=== PATIENT | female | born 1965 | race Caucasian/White ===

== ENCOUNTER → 2019-11-05 10:15 | Outpatient (BNVA) | payer MEDICARE, MEDICAID, SELFPAY | PROVIDERS: Family Provider Family Medicine; PCP Family Medicine; Visit Provider Family Medicine | DX: Z00.00 Encounter for general adult medical examination without abnormal findings (principal); Z78.9 Other specified health status; E03.9 Hypothyroidism, unspecified; I10 Essential (primary) hypertension; E78.2 Mixed hyperlipidemia; G62.9 Polyneuropathy, unspecified; G89.29 Other chronic pain; K21.9 Gastro-esophageal reflux disease without esophagitis; M54.5 Low back pain; E55.9 Vitamin D deficiency, unspecified; R53.83 Other fatigue | CPT/HCPCS: 80053; 80061; 82652; 84439; 84443; 84481 ==

== ENCOUNTER → 2019-12-26 10:40 | Outpatient (BNVA) | payer MEDICARE, MEDICAID, SELFPAY | PROVIDERS: Family Provider Family Medicine; PCP Family Medicine; Visit Provider Family Medicine | DX: E03.9 Hypothyroidism, unspecified (principal); R11.0 Nausea; N39.46 Mixed incontinence; R15.9 Full incontinence of feces; K21.9 Gastro-esophageal reflux disease without esophagitis; R15.1 Fecal smearing; N18.2 Chronic kidney disease, stage 2 (mild); E87.1 Hypo-osmolality and hyponatremia; I12.9 Hypertensive chronic kidney disease with stage 1 through stage 4 chronic kidney disease, or unspecified chronic kidney disease | CPT/HCPCS: 80048; 84443 ==

== ENCOUNTER → 2020-03-09 10:14 | Outpatient (BNVA) | payer MEDICARE, MEDICAID, SELFPAY | PROVIDERS: Family Provider Family Medicine; PCP Family Medicine; Visit Provider Family Medicine | DX: E03.9 Hypothyroidism, unspecified (principal); E11.8 Type 2 diabetes mellitus with unspecified complications; I10 Essential (primary) hypertension; J45.909 Unspecified asthma, uncomplicated; N18.2 Chronic kidney disease, stage 2 (mild); E87.1 Hypo-osmolality and hyponatremia | CPT/HCPCS: 80053; 83036; 84443 ==

== ENCOUNTER → 2020-05-25 17:12 | Outpatient (BNVA) | payer MEDICARE, MEDICAID, SELFPAY | PROVIDERS: Family Provider Family Medicine; PCP Family Medicine; Visit Provider Family Medicine | DX: E03.9 Hypothyroidism, unspecified (principal); I10 Essential (primary) hypertension; J45.909 Unspecified asthma, uncomplicated; N18.2 Chronic kidney disease, stage 2 (mild); G47.33 Obstructive sleep apnea (adult) (pediatric); J45.20 Mild intermittent asthma, uncomplicated; E11.22 Type 2 diabetes mellitus with diabetic chronic kidney disease; E11.40 Type 2 diabetes mellitus with diabetic neuropathy, unspecified | CPT/HCPCS: 80048; 83036; 84443 ==

== ENCOUNTER → 2020-08-04 10:13 | Outpatient (BNVA) | payer MEDICARE, MEDICAID, SELFPAY | PROVIDERS: Family Provider Family Medicine; PCP Family Medicine; Visit Provider Family Medicine | DX: E03.9 Hypothyroidism, unspecified (principal); M54.5 Low back pain; G89.29 Other chronic pain; G62.9 Polyneuropathy, unspecified; Z74.09 Other reduced mobility; Z78.9 Other specified health status; M77.8 Other enthesopathies, not elsewhere classified | CPT/HCPCS: 84439; 84443; 84481 ==

== ENCOUNTER → 2020-09-20 16:27 | Outpatient (BNVA) | payer MEDICAID, SELFPAY | PROVIDERS: Family Provider Family Medicine; PCP Family Medicine; Visit Provider Emergency Medicine | DX: N18.2 Chronic kidney disease, stage 2 (mild) (principal); R60.9 Edema, unspecified | CPT/HCPCS: 80048; 83880 ==

== ENCOUNTER 2020-11-25 07:17 | Outpatient (CLI) | payer MEDICARE, MEDICAID, SELFPAY ==
--- NOTE | 2020-11-25 07:20 | USCV_ITS ---
Jeanette Tatyana Age: 55 Gender: F : 1965 Exam Date: 11/25/2020 07:38 Ordering Phys: Rocio Bynum MD Technologist: Caryn Spence Exam Location: [facility] Indication: EDEMA BP: 120 / 80 HR: 90 Rhythm: Sinus Technical Quality: Technically difficult study MEASUREMENTS (Male / Female) Normal Values 2D ECHO LV Diastolic Diameter PLAX 4.5 cm 4.2 - 5.9 / 3.9 - 5.3 cm LV Systolic Diameter PLAX 3.4 cm IVS Diastolic Thickness 1.3 cm 0.6 - 1.0 / 0.6 - 0.9 cm IVS Systolic Thickness 1.7 cm LVPW Diastolic Thickness 1.0 cm 0.6 - 1.0 / 0.6 - 0.9 cm LVPW Systolic Thickness 1.8 cm LVOT Diameter 2.0 cm LV Ejection Fraction 2D Teich 48.9 % LV Ejection Fraction MOD 2C 28.7 % LV Ejection Fraction 2C AL 29.0 % LA Diameter 3.4 cm LA Width 3.6 cm LA Height 4.0 cm RA Width 4.2 cm RA Height 4.2 cm Aorta at Sinotubular Diameter 2.3 cm M-MODE LV Diastolic Diameter MM 4.3 cm 4.2 - 5.9 / 3.9 - 5.3 cm LV Systolic Diameter MM 3.3 cm LV Ejection Fraction MM Teich 48.8 % IVS Diastolic Thickness MM 1.5 cm 0.6 - 1.0 / 0.6 - 0.9 cm IVS Systolic Thickness MM 1.9 cm LVPW Diastolic Thickness MM 1.5 cm 0.6 - 1.0 / 0.6 - 0.9 cm LVPW Systolic Thickness MM 1.8 cm Aortic Annulus Diameter 3.1 cm LA Ao Ratio MM 1.2 MV E Point Septal Separation 1.3 cm DOPPLER AV Peak Velocity 136.0 cm/s LVOT Peak Velocity 97.0 cm/s AV Area Cont Eq vti 2.5 cm squared AV Area Cont Eq pk 2.2 cm squared MV Area PHT 5.0 cm squared Mitral E to A Ratio 1.1 MV E' Velocity 55.5 cm/s Mitral E to MV E' Ratio 11.5 Mitral E to LV E' Lateral Ratio 11.0 Mitral E to LV E' Septal Ratio 12.0 TR Peak Velocity 150.0 cm/s TR Peak Gradient 9.0 mmHg TV Peak E Velocity 56.0 cm/s Right Atrial Pressure 3.0 mmHg Pulmonary Artery Systolic Pressu 12.0 mmHg PV Peak Velocity 118.0 cm/s RV Acceleration Time 0.1 s RV Ejection Time 0.3 s RV AcT/ET 0.5 FINDINGS Left Ventricle Technically difficult study. Normal left ventricular size. LV systolic function is grossly normal. Regional wall motion abnormalities can not be assessed because of poor visualization. Right Ventricle The right ventricle is normal in size and function. Right Atrium The right atrium is normal in size. Left Atrium The left atrium is normal in size. Mitral Valve Not well visualized. No significant stenosis. There is trace mitral regurgitation. Aortic Valve Aortic valve is not well visualized. No signifcant stenosis. There is no aortic regurgitation. Tricuspid Valve Not well visualized. No significant stenosis or regurgitation. Insufficient TR jet to calculate RVSP Pulmonic Valve Not visualized Pericardium Normal pericardium without effusion. Aorta Normal ascending aorta dimension. CONCLUSIONS Technically difficult study because of poor ultrasonic windows. LV systolic function is grossly normal. Regional wall motion abnormalities cannot be assessed because of poor visualization. Trace mitral regurgitation. Valves are not well visualized but no significant abnormalities. No comparison studies are available. Chris Ibanez MD (Electronically Signed) Final Date: 29 November 2020 19:16 S
== END 2020-11-25 07:18 | disposition home or self-care (01) ==
PROVIDERS: PCP Family Medicine; Visit Provider Family Medicine
DX: R60.0 Localized edema (principal); I34.0 Nonrheumatic mitral (valve) insufficiency
CPT/HCPCS: 93306

== ENCOUNTER → 2021-02-15 10:02 | Outpatient (BNVA) | payer MEDICARE, MEDICAID, SELFPAY | PROVIDERS: PCP Family Medicine; Visit Provider Family Medicine | DX: E03.9 Hypothyroidism, unspecified (principal); N18.2 Chronic kidney disease, stage 2 (mild); E78.2 Mixed hyperlipidemia; J44.9 Chronic obstructive pulmonary disease, unspecified; Z23 Encounter for immunization; E78.5 Hyperlipidemia, unspecified; J45.909 Unspecified asthma, uncomplicated; E55.9 Vitamin D deficiency, unspecified; R60.0 Localized edema; G89.29 Other chronic pain; R11.0 Nausea; K21.9 Gastro-esophageal reflux disease without esophagitis; N39.46 Mixed incontinence; R15.1 Fecal smearing; G62.9 Polyneuropathy, unspecified; J45.20 Mild intermittent asthma, uncomplicated; E11.22 Type 2 diabetes mellitus with diabetic chronic kidney disease; I12.9 Hypertensive chronic kidney disease with stage 1 through stage 4 chronic kidney disease, or unspecified chronic kidney disease | CPT/HCPCS: 80053; 80061; 83036; 84439; 84443; 84481; 85025 ==

== ENCOUNTER → 2021-06-07 09:24 | Outpatient (BNVA) | payer MEDICARE, MEDICAID, SELFPAY | PROVIDERS: PCP Family Medicine; Visit Provider Family Medicine | DX: E55.9 Vitamin D deficiency, unspecified (principal); R53.83 Other fatigue; E03.9 Hypothyroidism, unspecified; N18.2 Chronic kidney disease, stage 2 (mild) | CPT/HCPCS: 80048; 82652; 84439; 84443; 84481 ==

== ENCOUNTER → 2021-07-06 10:35 | Outpatient (BNVA) | payer MEDICARE, MEDICAID, SELFPAY | PROVIDERS: PCP Family Medicine; Visit Provider Family Medicine | DX: E03.9 Hypothyroidism, unspecified (principal); E11.8 Type 2 diabetes mellitus with unspecified complications; E11.9 Type 2 diabetes mellitus without complications; N18.2 Chronic kidney disease, stage 2 (mild) | CPT/HCPCS: 80048; 83036; 84443 ==

== ENCOUNTER 2021-07-18 11:44 | Observation (INO) | payer MEDICARE, MEDICAID, SELFPAY ==
[2021-07-18] VITALS (9 sets, daily range): BP systolic 108–138; BP diastolic 62–96; PULSE 78–111; RESP 16–20; TEMP 36.7–37.2; O2SAT 90–98; BMI 58.3
--- NOTE | 2021-07-18 12:04 | XRR_ITS ---
PROCEDURE INFORMATION: Exam: XR Chest Exam date and time: 07/18/2021 12:04 PM Age: 56 years old Clinical indication: Other: CVA TECHNIQUE: Imaging protocol: XR of the chest. Views: 1 view. COMPARISON: No relevant prior studies available. FINDINGS: Lungs: Unremarkable. No consolidation. Pleural spaces: Unremarkable. No pleural effusion. No pneumothorax. Heart/Mediastinum: Unremarkable. No cardiomegaly. Bones/joints: Unremarkable. XR/XR chest 1V portable [id number] IMPRESSION: No acute findings.
--- NOTE | 2021-07-18 12:04 | CTR_ITS ---
PROCEDURE INFORMATION: Exam: CT Head Without Contrast Exam date and time: 07/18/2021 12:04 PM Age: 56 years old Clinical indication: Speech disturbance; Slurred speech; Additional info: CVA TECHNIQUE: Imaging protocol: Computed tomography of the head without contrast. Radiation optimization: All CT scans at this facility use at least one of these dose optimization techniques: automated exposure control; mA and/or kV adjustment per patient size (includes targeted exams where dose is matched to clinical indication); or iterative reconstruction. COMPARISON: No relevant prior studies available. RADIATION DOSE METRICS: Total DLP (mGy-cm): 1064.22 FINDINGS: Brain: There is loss of manuel-white differentiation and intermediate density in the anterior left parietal lobe consistent with subacute infarct. Mild local sulcal effacement however no midline shift. No evidence for acute intracranial hemorrhage. Cerebral ventricles: No ventriculomegaly. Paranasal sinuses: Visualized sinuses are unremarkable. No fluid levels. Mastoid air cells: Visualized mastoid air cells are well aerated. Bones/joints: Unremarkable. No acute fracture. Soft tissues: Unremarkable. CT/CT head wo con* [id number] IMPRESSION: Subacute infarct involving the anterior aspect of the left parietal lobe as described above.
--- NOTE | 2021-07-18 12:05 | ECG_ITS ---
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 Measurements Intervals Center Line Rate: 80 P: 29 MA: 181 QRS: -15 QRSD: 74 T: 29 QT: 357 QTc: 413 Interpretive Statements SINUS RHYTHM LOW QRS VOLTAGE IN PRECORDIAL LEADS [QRS DEFLECTION < 1.0 mV IN CHEST LEADS] POSSIBLE ANTERIOR MYOCARDIAL INFARCTION , PROBABLY OLD [30 ms Q WAVE IN V3/V4, OR R < 0.2 mV IN V4] No previous ECG available for comparison Electronically Signed On 07-19-2021 16:14:27 PARISH NURSE by Martha Thomas M.D. [id number]
--- NOTE | 2021-07-18 12:29 | W.ED.NEUROSD ---
HPI - Neuro Symptoms/Deficit General: Chief Complaint: Neuro Symptoms/Deficit Stated Complaint: slurred speech, stroke like symptoms, sent for ct Time Seen by Provider: 07/18/21 11:59 Source: patient Mode of arrival: ambulatory Limitations: no limitations History of Present Illness: 56-year-old female states that over the last 3 days she has been having some slight right-sided weakness along with some slurred speech. She states that this kind of waxed and waned and has been mild in nature she was able to ambulate to her room without any problems no history of stroke denies any headache denies any worst improving factors. Associated symptoms: Deny chest pain, nausea or vomiting Review of Systems Const: Denies: fever(s), chills, body aches or change in appetite Eyes: Denies: blurry vision or eye discomfort ENMT: Denies: throat pain or dental pain Card: Denies: chest pain Resp: Denies: dyspnea GI: Denies: abdominal pain, nausea, vomiting or diarrhea : Denies: dysuria Musc: Denies: neck pain or back pain Skin/Breast: Denies: rash Neuro: Reports: Slurred speech present Psych: Denies: depression Daniel/Lymph: Denies: easy bruising All/Imm: Denies: urticaria PFSH ED PFSH: Medical History Allergic rhinitis Asthma Chronic bilateral low back pain Chronic idiopathic pain syndrome Chronic post-traumatic stress disorder 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 Essential hypertension GERD (gastroesophageal reflux disease) Hyperlipidemia Hypothyroidism Insomnia Neuropathy CIERRA (obstructive sleep apnea) Psychiatric care Vitamin D deficiency Surgical History H/O section H/O: hysterectomy History of carpal tunnel surgery History of knee replacement Family History Other CAD (coronary artery disease) Diabetes Social History Smoking and tobacco status: never smoked Alcohol intake: former Female Reproductive History: Spontaneous abortions: No NIH stroke score NIHSS: Level Of Consciousness - 1a: 0 Level Of Consciousness Questions - 1b: Both Correct Level Of Consciousness Commands - 1c: Both Correct Best Gaze - 2: Normal Visual López - 3: No Visual Loss Facial Palsy - 4: Normal Motor Arm Right - 5: No Drift Motor Arm Left - 5: No Drift Motor Leg Right - 6: No Drift Motor Leg Left - 6: No Drift Limb Ataxia - 7: Absent Sensory - 8: Normal Best Language - 9: No Aphasia Dysarthia - 10: Mild/Moderate Dysarthia Extinction And Inattention - 11: 0 Score: Total Score: 1 Physical Exam Const: COMMON NORMALS: no acute distress, patient oriented x3, healthy appearing and alert ORIENTATION/CONSCIOUSNESS: Yes oriented to person, Yes oriented to place and Yes oriented to time HENMT: COMMON NORMALS: normocephalic and atraumatic HEAD & SCALP: normocephalic and atraumatic Eye: COMMON NORMALS: Equal, round and reactive pupils present and EOMs intact bilaterally PUPIL: Yes Equal, round and reactive pupils present Neck/C-Spine: COMMON NORMALS: full ROM and supple Chest: COMMONS NORMALS: normal inspection of the chest and normal palpation of entire chest wall Resp: COMMON NORMALS: normal respiratory effort, No retractions, No use of accessory muscles and clear to auscultation bilaterally AUSCULTATION: clear to auscultation bilaterally Cardio: COMMON NORMALS: regular rate, regular rhythm and No murmurs present (Cardio) RATE: regular rate RHYTHM: regular rhythm GI: COMMON NORMALS: Normal to inspection, nondistended, normoactive bowel sounds present, Soft to palpation, non-tender and no masses PALPATION: Yes Soft to palpation Extremity: COMMON NORMALS: normal to inspection and full ROM Neuro: COMMON NORMALS: patient oriented x3 and moves all extremities SENSORIUM/ORIENTATION: Yes alert, Yes oriented to person, Yes oriented to place and Yes oriented to time CRANIAL NERVES: Yes CN normal except as noted SPEECH: Other neuro speech findings (slurred speech) GAIT: Yes Normal gait present Psych: COMMON NORMALS: mental status grossly normal, Normal thought process present and cooperative THOUGHT PROCESS: Normal thought process present Skin: COMMON NORMALS: no rashes or lesions noted and no wounds GENERAL SKIN EXAM: no rashes or lesions noted Course Vital Signs: Vital signs: Vital Signs Temperature 98.1 F 07/18/21 11:56 Pulse Rate 111 H 07/18/21 12:49 Respiratory Rate 16 07/18/21 12:49 Blood Pressure 126/76 07/18/21 12:49 Pulse Oximetry 93 07/18/21 12:49 MDM - Neuro Symptoms/Deficit Medical Decision Making Patient presents here with slurred speech along with history of some right-sided weakness. She appears to had a stroke on CT she is not a TPA candidate as her symptoms started 3 days ago. Lab Data : 07/18/21 12:07 07/18/21 12:07 Radiology Impressions Chest X-Ray 07/18/21 12:04 IMPRESSION: No acute findings. Head CT 07/18/21 12:04 IMPRESSION: Subacute infarct involving the anterior aspect of the left parietal lobe as described above. ADDENDUM: 07/18/21 1308 CRITICAL RESULT: The study was personally discussed on the telephone with PARI Niño on 07/18/2021 1:03 PM COMMERCIAL LINES ASSISTANT. The results were understood and acknowledged. Laboratory Results Sodium Cancelled 07/18/21 12:07 Potassium Cancelled 07/18/21 12:07 Chloride Cancelled 07/18/21 12:07 Carbon Dioxide Cancelled 07/18/21 12:07 Anion Gap Cancelled 07/18/21 12:07 BUN Cancelled 07/18/21 12:07 Creatinine Cancelled 07/18/21 12:07 GFR Calculation Cancelled 07/18/21 12:07 Glucose Cancelled 07/18/21 12:07 Calculated Osmolality Cancelled 07/18/21 12:07 Calcium Cancelled 07/18/21 12:07 Total Bilirubin Cancelled 07/18/21 12:07 AST Cancelled 07/18/21 12:07 ALT Cancelled 07/18/21 12:07 Alkaline Phosphatase Cancelled 07/18/21 12:07 Total Protein Cancelled 07/18/21 12:07 Albumin Cancelled 07/18/21 12:07 Globulin Cancelled 07/18/21 12:07 TSH Cancelled 07/18/21 12:07 Urine Color Yellow (Yellow) 07/18/21 11:51 Urine Appearance Cloudy (CLEAR) 07/18/21 11:51 Urine pH 5 (5-7) 07/18/21 11:51 Ur Specific [place] 1.015 (1.005-1.030) 07/18/21 11:51 Urine Protein 3+ (Negative) H 07/18/21 11:51 Urine Glucose (UA) Norm (Normal) 07/18/21 11:51 Urine Ketones Negative (Negative) 07/18/21 11:51 Urine Blood Neg (Negative) 07/18/21 11:51 Urine Nitrate Positive (Negative) H 07/18/21 11:51 Urine Bilirubin Neg (Negative) 07/18/21 11:51 Urine Urobilinogen Norm mg/dL (Negative) 07/18/21 11:51 Ur Leukocyte Esterase Negative (Negative) 07/18/21 11:51 Urine RBC None /hpf (0-2) 07/18/21 11:51 Urine WBC 15-25 /hpf (0-5) H 07/18/21 11:51 Ur Squamous Epith Cells 25-40 /hpf (0-5) H 07/18/21 11:51 Ur Transition Epith Cell 0-4 /hpf 07/18/21 11:51 Amorphous Sediment Not Reportable 07/18/21 11:51 Urine Bacteria 4+ /hpf (NONE) H 07/18/21 11:51 EKG Data EKG 1: I personally reviewed and interpreted this EKG as follows: EKG interpretation date: 07/18/21 EKG interpretation time: 12:36 Interpretation: nsr hr [address] or t wave abnormalities qrs 74 qtc 393 Discharge Plan Discharge Patient Disposition: Admitted As Inpatient Clinical Impression: Acute CVA (cerebrovascular accident), Acute cystitis Condition: Stable Coding Level of Care Code ED Cardiac Catheterization Technician for Chg Fwd Exam Comprehensive
[2021-07-18 12:33] LABS: Basophils # 0.1 10^3/uL (0.0-0.1); Basophils % 0.8 %; Eosinophils # 0.3 10^3/uL (0.0-0.8); Eosinophils % 1.8 %; Hematocrit 37.3 % (37.0-47.0); Lymphocytes # 1.8 10^3/uL (0.8-4.8); Lymphocytes % 9.9 %; Mean Corpuscular HGB Conc 32.2 g/dL (30.0-36.0); Mean Corpuscular Hemoglobin 30.4 pg (28.0-34.0); Mean Corpuscular Volume 94.4 fl (81-99); Mean Platelet Volume 9.1 fL (7.4-10.4); Monocytes # 0.8 10^3/uL (0.2-0.9); Monocytes % 4.4 %; Neutrophils # 13.27 10^3/uL (1.8-7.7); Nucleated Red Blood Cells % 0 %; Platelet Count 426 10^3/cmm (130-400); Red Blood Count 3.95 10^6/uL (4.1-5.3); Red Cell Distribution Width 14.9 % (12.1-15.1); White Blood Count 17.9 10^3/uL (4.0-10.0)
[2021-07-18 12:59] LABS: Bilirubin Urine Neg (Negative); Blood Urine Neg (Negative); Glucose Urine UA Norm (Normal); Ketones Urine Negative (Negative); Leukocyte Esterase Urine Negative (Negative); Nitrate Urine Positive (Negative); Protein Urine 3+ (Negative); Specific Gravity, Urine 1.015 (1.005-1.030); Urine Appearance Cloudy (CLEAR); Urine Color Yellow (Yellow); Urobilinogen Urine Norm (Negative); pH Urine 5 (5-7)
[2021-07-18 13:00] LABS: Add Urine Microscopic? YES
[2021-07-18 13:02] LABS: WBC Urine 15-25 /hpf (0-5)
[2021-07-18 13:03] LABS: Add Urine Culture? No; Bacteria Urine 4+ /hpf; Squamous Epithelial Cell Urine 25-40 /hpf (0-5); Transitional Epi Cells Urine 0-4 /hpf
[2021-07-18 13:13] LABS: Slide Review Slide Review Perform
[2021-07-18 13:15] LABS: Neutrophils % 83.1 %
[2021-07-18] MEDS: cefTRIAXone 1,000 MG in sodium chloride 0.9% (plus) 50 ML 100 MG IV (13:18)
[2021-07-18] MEDS: aspirin 81 mg Chew Tablet PO (13:24)
[2021-07-18 14:16] LABS: Alanine Aminotransferase 16 U/L (0-33); Albumin Level 3.1 g/dL (3.5-5.2); Alkaline Phosphatase 84 IU/L (35-105); Chloride 96 mmol/L (98-107); Potassium 4.9 mmol/L (3.5-5.1); Sodium 134 mmol/L (136-145)
[2021-07-18 15:21] LABS: Anion Gap 20.9 (5-19); Blood Urea Nitrogen 41 mg/dL (6-20); Calcium 9.2 mg/dL (8.5-10.5); Carbon Dioxide 22 mmol/L (22-29); Globulin 3.4 g/dL (1.3-4.6); Glomerular Filtration Rate 19.2 mL/min (90-130); Glucose 102 mg/dL (65-115); Osmolality Calculated 288 mOsm/kg (285-295); Thyroid Stimulating Hormone 6.95 uIU/mL (0.27-4.20); Total Bilirubin 0.2 mg/dL (0.15-1.2); Total Protein 6.5 g/dL (6.6-8.7)
[2021-07-18 15:22] LABS: Aspartate Amino Transferase 22 U/L (0-32)
--- NOTE | 2021-07-18 16:16 | P.HP_ITS ---
Providers/Chief Complaint Admitting Physician: Sarkis Winchester Primary Care Provider: Rocio Bynum MD Chief Complaint: slurred speech, stroke like symptoms, sent for ct History of Present Illness Pleasant 56-year-old lady with history of HTN, HLD, diabetes, obesity, CIERRA, presents with right upper extremity weakness, numbness, clumsiness, as well as word finding difficulty since 07/15. Noting some improvement in the numbness and weakness of right upper extremity. Denies pain. Denies anything that makes his symptoms worse or better. She denies prior history of CVA. CT of the head with noted subacute infarct involving anterior aspect of left parietal lobe. She took aspirin today. She is outside the window for intervention. In ER received Rocephin for also possible UTI, with nitrate positive urine, 15-25 WBC, 25-40 squamous epithelial cells. 4+ bacteria. Review of Systems Const: Denies: fever(s), chills, body aches or malaise Eyes: Denies: change in vision or eye redness ENMT: Denies: throat pain, oral sores or ear or mastoid pain Card: Denies: chest pain, edema, pre-syncope or dyspnea on exertion Resp: Denies: dyspnea, productive cough, change in phlegm color or hemoptysis GI: Denies: abdominal pain, nausea, vomiting, diarrhea, constipation, hematochezia or melena : Denies: flank pain, urinary frequency or hematuria Musc: Denies: back pain, joint swelling or joint redness Skin/Breast: Denies: rash, sores or new lesions Neuro: Reports: numbness in extremities, weakness in extremities, lack of coordination and difficulty communicating thoughts; Denies: headache(s), dizziness, confusion or seizure-like activity Endo: Denies: polyuria or polydipsia Daniel/Lymph: Denies: easy bleeding or purpura All/Imm: Denies: urticaria, throat swelling or tongue swelling Medications/Allergies Home Medications Medication Instructions Recorded Confirmed Last Taken Type nystatin 100,000 unit/gram topical See Rx Instructions .ROUTE 01/22/21 07/18/21 Unknown Rx ointment .COMPLEX #30 g cholecalciferol (vitamin D3) 1,250 See Rx Instructions .ROUTE 02/15/21 07/18/21 Unknown Rx mcg (50,000 unit) tablet .COMPLEX #13 tab (Dialyvite Vitamin D3 Max) fluticasone propionate 50 1 spray INTRANASAL BID 90 Days 02/15/21 07/18/21 Unknown Rx mcg/actuation nasal #54.6 ml spray,suspension nystatin 100,000 unit/gram topical See Rx Instructions .ROUTE 06/10/21 07/18/21 Unknown Rx powder (Nyamyc) .COMPLEX #60 g albuterol sulfate 90 mcg/actuation 2 puff INHALATION QID PRN 90 Days 07/06/21 07/18/21 Unknown Rx aerosol inhaler (Ventolin HFA) #54 gm cyclobenzaprine 10 mg tablet See Rx Instructions .ROUTE 07/06/21 07/18/21 Unknown Rx .COMPLEX #180 tab furosemide 20 mg tablet (Lasix) 20 mg PO QAM 90 Days #90 tab 07/06/21 07/18/21 07/18/21 Rx insulin glargine 100 unit/mL 40 unit (0.4 mL) SUBCUT BID 90 07/06/21 07/18/21 07/18/21 Rx subcutaneous solution Days #72 ml levothyroxine 112 mcg tablet 112 mcg PO DAILY 90 Days #90 tab 07/06/21 07/18/21 07/18/21 Rx levothyroxine 50 mcg tablet 50 mcg PO DAILY 90 Days #90 tab 07/06/21 07/18/21 07/18/21 Rx lisinopril 20 mg tablet 20 mg PO DAILY 90 Days #90 tab 07/06/21 07/18/21 07/18/21 Rx metoprolol succinate 100 mg 100 mg PO DAILY 90 Days #90 tab 07/06/21 07/18/21 07/18/21 Rx tablet,extended release 24 hr ondansetron HCl 4 mg tablet 4 mg PO DAILY 90 Days #90 tab 07/06/21 07/18/21 Unknown Rx (Zofran) pregabalin 150 mg capsule (Lyrica) 150 mg PO TID 30 Days #90 cap 07/06/21 07/18/21 07/18/21 Rx duloxetine 20 mg capsule,delayed 20 mg PO DAILY #30 cap 07/08/21 07/18/21 07/18/21 Rx release (Cymbalta) clonazepam 0.5 mg tablet 0.5 mg PO QDAY PRN #30 tab 07/09/21 07/18/21 Unknown Rx amitriptyline 50 mg tablet 100 mg PO BEDTIME 07/18/21 07/18/21 07/17/21 History atorvastatin 10 mg tablet 10 mg PO DAILY 07/18/21 07/18/21 07/17/21 History brexpiprazole 4 mg tablet (Rexulti) 4 mg PO DAILY 07/18/21 07/18/21 07/18/21 Hi story duloxetine 60 mg capsule,delayed 60 mg PO DAILY 07/18/21 07/18/21 07/18/21 History release (Cymbalta) hydrochlorothiazide 25 mg tablet 25 mg PO DAILY 07/18/21 07/18/21 07/18/21 History meloxicam 15 mg tablet 15 mg PO DAILY 07/18/21 07/18/21 07/18/21 History metformin 500 mg tablet 500 mg PO DAILY 07/18/21 07/18/21 07/18/21 History montelukast 10 mg tablet 10 mg PO DAILY 07/18/21 07/18/21 07/18/21 History Allergies Allergy/AdvReac Type Severity Reaction Status Date / Time sulfamethoxazole Allergy hives Verified 07/18/21 09:54 [From Bactrim] trimethoprim [From Bactrim] Allergy hives Verified 07/18/21 09:54 PFSH Acute PFSH: Medical History Allergic rhinitis Asthma Chronic bilateral low back pain Chronic idiopathic pain syndrome Chronic post-traumatic stress disorder 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 Essential hypertension GERD (gastroesophageal reflux disease) Hyperlipidemia Hypothyroidism Insomnia Neuropathy CIERRA (obstructive sleep apnea) Psychiatric care Vitamin D deficiency Surgical History H/O section H/O: hysterectomy History of carpal tunnel surgery History of knee replacement Family History Other CAD (coronary artery disease) Diabetes Social History (Updated 07/18/21 @ 16:19 by Sarkis Winchester MD) Smoking and tobacco status: never smoked Alcohol intake: former Substance/Drug Use: never Lives independently: Yes Household members: significant other Current occupational status: retired and disabled Female Reproductive History: Spontaneous abortions: No Vitals/I&O/Wt Last Vital Signs Temp 98.1 F 07/18/21 11:56 Pulse 81 07/18/21 15:15 Resp 16 07/18/21 13:17 BP 133/91 07/18/21 15:15 Pulse Ox 98 07/18/21 15:15 07/18/21 07/18/21 07/18/21 06:59 14:59 22:59 Intake Total 50 / 50 Balance 50 / 50 Weight last 48 hrs Weight 144.696 kg Physical Exam Const: COMMON NORMALS: no acute distress and patient oriented x3 NUTRITIONAL APPEARANCE: obese morbidly obese HENMT: COMMON NORMALS: oropharynx normal Neck/C-Spine: COMMON NORMALS: no JVD Resp: COMMON NORMALS: normal respiratory effort and clear to auscultation bilaterally AUSCULTATION: clear to auscultation bilaterally Cardio: COMMON NORMALS: no JVD, regular rhythm, S1 normal heart sound present, S2 normal heart sound present and No murmurs present (Cardio) RHYTHM: regular rhythm HEART SOUNDS: S1 normal heart sound present and S2 normal heart sound present GI: COMMON NORMALS: Normal to inspection, nondistended, normoactive bowel sounds present, Soft to palpation and non-tender PALPATION: Yes Soft to palpation Extremity: COMMON NORMALS: no joint enlargement and no pedal edema Neuro: COMMON NORMALS: patient oriented x3 and moves all extremities SENSORIUM/ORIENTATION: Yes alert MENINGEAL SIGNS: Yes no meningeal signs COORDINATION/BALANCE: [id number] test normal (slower on R) SPEECH: expressive aphasia SENSORY EXAM: Yes Abnormal double simultaneous stimulation for sensation Double similtaneous stimulation abnormal: right-sided extinction MOTOR EXAM: 5/5 motor strength present throughout and Pronator motor function present pronator drift of right upper extremity OTHER: Awake, alert, responsive. No trouble tracking. Visual perry full to confrontation. Skin: COMMON NORMALS: no rashes or lesions noted GENERAL SKIN EXAM: no rashes or lesions noted Data : 07/18/21 12:07 07/18/21 13:15 A&P Assessment and plan (1) Acute CVA (cerebrovascular accident): Subacute stroke noted on CT involving anterior aspect of left parietal lobe. Denies prior CVA. Outside window for intervention. Discussed with her to seek medical attention immediately in case of future symptoms. Continue aspirin, escalate statin dose. Check A1c with history of diabetes. Monitor on telemetry. Assess TTE. Carotid duplex. Permissive hypertension. PT, OT, ST assessment. Discontinue meloxicam due to increasing risk of stroke. Status: Acute (2) Acute cystitis: Possible cystitis versus contaminated urine sample. Continue ceftriaxone. Requesting urine culture. Status: Acute Plan DM2: Continue insulin Lantus, add sliding scale. Consistent carbohydrate diet. Check A1c. HTN: Monitor blood pressures, permissive hypertension for now. HLD: Continue statin Hypothyroidism GERD Asthma CIERRA Other chronic medical conditions noted Attestations Medical Necessity Statement*: Admission of over two midnights is anticipated for assessment management of first CVA. 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
[2021-07-18 17:05] LABS: Glucose Point of Care 87 mg/dL (70-110)
[2021-07-18] MEDS: insulin glargine 100 units/1 mL 20 UNIT SUBCUT (17:27)
[2021-07-18] MEDS: heparin 5,000 unit/mL INJ 1 mL 5000 UNIT SUBCUT (17:27)
[2021-07-18] MEDS: fluticasone nasal spray 16gm Btl 1 SPRAY INTRANASAL (17:27)
[2021-07-18 17:37] LABS: Basophils # 0.1 10^3/uL (0.0-0.1); Basophils % 0.7 %; Eosinophils # 0.2 10^3/uL (0.0-0.8); Eosinophils % 1.7 %; Hematocrit 35.1 % (37.0-47.0); Hemoglobin 11.5 g/dL (11.5-15.3); Lymphocytes # 1.7 10^3/uL (0.8-4.8); Lymphocytes % 11.9 %; Mean Corpuscular HGB Conc 32.8 g/dL (30.0-36.0); Mean Corpuscular Hemoglobin 30.5 pg (28.0-34.0); Mean Corpuscular Volume 93.1 fl (81-99); Mean Platelet Volume 7.9 fL (7.4-10.4); Monocytes # 0.7 10^3/uL (0.2-0.9); Monocytes % 4.9 %; Neutrophils # 10.07 10^3/uL (1.8-7.7); Neutrophils % 72.7 %; Nucleated Red Blood Cells % 0 %; Platelet Count 422 10^3/cmm (130-400); Red Blood Count 3.77 10^6/uL (4.1-5.3); Red Cell Distribution Width 14.5 % (12.1-15.1); White Blood Count 13.9 10^3/uL (4.0-10.0)
[2021-07-18 17:53] LABS: Alanine Aminotransferase 14 U/L (0-33); Alkaline Phosphatase 82 IU/L (35-105); Anion Gap 15.3 (5-19); Aspartate Amino Transferase 18 U/L (0-32); Blood Urea Nitrogen 40 mg/dL (6-20); Calcium 9.9 mg/dL (8.5-10.5); Carbon Dioxide 24 mmol/L (22-29); Chloride 97 mmol/L (98-107); Globulin 3.5 g/dL (1.3-4.6); Glomerular Filtration Rate 18.4 mL/min (90-130); Glucose 92 mg/dL (65-115); Osmolality Calculated 283 mOsm/kg (285-295); Potassium 4.3 mmol/L (3.5-5.1); Sodium 132 mmol/L (136-145); Total Bilirubin 0.2 mg/dL (0.15-1.2); Total Protein 6.5 g/dL (6.6-8.7)
[2021-07-18 18:20] LABS: Slide Review Slide Review Perform
[2021-07-18 21:02] LABS: Glucose Point of Care 90 mg/dL (70-110)
[2021-07-18] MEDS: pregabalin 150 mg Capsule PO (21:13)
[2021-07-18] MEDS: atorvastatin 40 mg Tablet PO (21:13)
[2021-07-18] MEDS: amitriptyline 25 mg Tablet 100 MG PO (21:14)
[2021-07-18 23:34] LABS: Free T4 Free Thyroxine 1.24 ng/dL (0.82-1.77)
[2021-07-19] VITALS (7 sets, daily range): BP systolic 87–136; BP diastolic 51–84; PULSE 69–96; RESP 13–21; TEMP 36.6–37.1; O2SAT 91–96
[2021-07-19] MEDS: heparin 5,000 unit/mL INJ 1 mL 5000 UNIT SUBCUT ×2 (01:11→09:11)
[2021-07-19 05:33] LABS: Basophils # 0.1 10^3/uL (0.0-0.1); Basophils % 0.9 %; Eosinophils # 0.4 10^3/uL (0.0-0.8); Eosinophils % 2.7 %; Hematocrit 35.1 % (37.0-47.0); Hemoglobin 11.3 g/dL (11.5-15.3); Lymphocytes % 14.4 %; Mean Corpuscular HGB Conc 32.2 g/dL (30.0-36.0); Mean Corpuscular Hemoglobin 29.9 pg (28.0-34.0); Mean Corpuscular Volume 92.9 fl (81-99); Monocytes # 0.8 10^3/uL (0.2-0.9); Monocytes % 5.8 %; Neutrophils % 67.6 %; Nucleated Red Blood Cells % 0 %; Platelet Count 431 10^3/cmm (130-400); Red Blood Count 3.78 10^6/uL (4.1-5.3); Red Cell Distribution Width 14.3 % (12.1-15.1); White Blood Count 13.8 10^3/uL (4.0-10.0)
[2021-07-19 05:54] LABS: Glucose Point of Care 91 mg/dL (70-110)
[2021-07-19 05:55] LABS: Chol HDL Ratio 5.03 mg/dL (0.0-4.40); Cholesterol 151 mg/dL (0-200); HDL Cholesterol 30 mg/dL (60-100); LDL Cholesterol Calculated 84 mg/dL (50-129); Triglycerides 183 mg/dL (0-150)
[2021-07-19 05:56] LABS: Estmated Average Glucose 126
[2021-07-19] MEDS: FUROsemide 20 mg Tablet PO (06:08)
[2021-07-19 06:43] LABS: Slide Review Slide Review Perform
[2021-07-19] MEDS: duloxetine 60 mg Capsule PO (09:11)
[2021-07-19] MEDS: montelukast sodium 10 mg Tablet PO (09:11)
[2021-07-19] MEDS: levothyroxine 50 mcg Tablet PO (09:12)
[2021-07-19] MEDS: pregabalin 150 mg Capsule PO (09:12)
[2021-07-19] MEDS: levothyroxine 112 mcg Tablet PO (09:12)
[2021-07-19] MEDS: insulin glargine 100 units/1 mL 20 UNIT SUBCUT (09:12)
[2021-07-19] MEDS: aspirin 81 mg EC Tablet 162 MG PO (09:12)
[2021-07-19] MEDS: ondansetron 4 MG Tablet PO (09:12)
[2021-07-19] MEDS: metoprolol succinate ER (24 HR) 50 mg Tablet PO (09:14)
--- NOTE | 2021-07-19 09:21 | P.DS_ITS ---
Discharge Providers Date of Admission: 07/18/21 13:06 Date of Discharge: July 19, 2021 Attending Provider at Admission: Sarkis Winchester Attending Provider at Discharge: Adonay Higuera MD Primary Care Provider: Rocio Bynum MD Diagnoses at Discharge Discharge Diagnosis (1) Acute CVA (cerebrovascular accident): Status: Acute (2) Acute cystitis: Status: Acute Reason for Visit Reason for Visit: slurred speech, stroke like symptoms, sent for ct Hospital Course Hospital Course 56-year-old lady presenting with right upper extremity weakness, numbness, clumsiness, as well as aphasia and appears to have sensory neglect on the right since 07/15, noted subacute parietal CVA on CT head. Outside window for intervention. On 07/19 she was able to eat without any signs of aspiration, able to walk to the bathroom on her own without any assistance, eager to return home. Carotid Doppler echo report is pending. I will discharge on dual antiplatelet therapy for at least 21 days, start taking high dose of atorvastatin, better blood pressure and glucose control. TSH 6-hour free T4 normal. Crackles 183. Hemoglobin A1c 6.0. Would give her outpatient PT referral Physical Exam Narrative: Mild right arm weakness EOMI, PERRLA Right-sided sensory neglect Good strength of left arm and lower extremities bilaterally Able to understand my verbal commands S1, S2 Abdomen distended with obesity Saturating well on room air Discharge Data Studies Completed and Pending Completed Studies During Hospitalization Category Date Time Status CT head wo con* [id number] Urgent Cat Scan 07/18/21 12:04 Completed XR chest 1V portable [id number] Urgent Exams 07/18/21 12:04 Completed Pending at discharge Category Date Time Status Complete Blood Count w/Auto AM LABS Lab 07/20/21 04:00 Ordered Complete Blood Count w/Auto AM LABS Lab 07/21/21 04:00 Ordered Urine Culture Routine Lab 07/18/21 11:51 Received CV carotid duplex BI* [id number] Routine Ultrasound 07/19/21 06:00 Ordered CV. echo complete* [id number] Routine Ultrasound 07/19/21 06:00 Ordered Radiology Impressions Chest X-Ray 07/18/21 12:04 IMPRESSION: No acute findings. Head CT 07/18/21 12:04 IMPRESSION: Subacute infarct involving the anterior aspect of the left parietal lobe as described above. ADDENDUM: 07/18/21 1305 CRITICAL RESULT: The study was personally discussed on the telephone with PARI Niño on 07/18/2021 1:03 PM [employer]. The results were understood and acknowledged. Laboratory Results WBC 13.8 10^3/uL (4.0-10.0) H 07/19/21 05:09 RBC 3.78 10^6/uL (4.1-5.3) L 07/19/21 05:09 Hgb 11.3 g/dL (11.5-15.3) L 07/19/21 05:09 Hct 35.1 % (37.0-47.0) L 07/19/21 05:09 MCV 92.9 fl (81-99) 07/19/21 05:09 MCH 29.9 pg (28.0-34.0) 07/19/21 05:09 MCHC 32.2 g/dL (30.0-36.0) 07/19/21 05:09 RDW 14.3 % (12.1-15.1) 07/19/21 05:09 Plt Count 431 10^3/cmm (130-400) H 07/19/21 05:09 MPV 8.0 fL (7.4-10.4) 07/19/21 05:09 Neut % (Auto) 67.6 % 07/19/21 05:09 Lymph % (Auto) 14.4 % 07/19/21 05:09 [place] % (Auto) 5.8 % 07/19/21 05:09 Eos % (Auto) 2.7 % 07/19/21 05:09 Baso % (Auto) 0.9 % 07/19/21 05:09 Neut # (Auto) 9.30 10^3/uL (1.8-7.7) H 07/19/21 05:09 Lymph # (Auto) 2.0 10^3/uL (0.8-4.8) 07/19/21 05:09 [place] # (Auto) 0.8 10^3/uL (0.2-0.9) 07/19/21 05:09 Eos # (Auto) 0.4 10^3/uL (0.0-0.8) 07/19/21 05:09 Baso # (Auto) 0.1 10^3/uL (0.0-0.1) 07/19/21 05:09 Nucleated RBC % (auto) 0 % 07/19/21 05:09 Nucleated RBCs # 0.0 /100WBC 07/19/21 05:09 Sodium 132 mmol/L (136-145) L 07/18/21 17:24 Potassium 4.3 mmol/L (3.5-5.1) 07/18/21 17:24 Chloride 97 mmol/L (98-107) L 07/18/21 17:24 Carbon Dioxide 24 mmol/L (22-29) 07/18/21 17:24 Anion Gap 15.3 (5-19) 07/18/21 17:24 BUN 40 mg/dL (6-20) H 07/18/21 17:24 Creatinine 2.7 mg/dL (0.5-0.9) H 07/18/21 17:24 GFR Calculation 18.4 mL/min (90-130) L 07/18/21 17:24 Glucose 92 mg/dL (65-115) 07/18/21 17:24 POC Glucose 91 mg/dL (70-110) 07/19/21 05:49 Estimat Average Glucose 126 07/19/21 05:09 Hemoglobin A1c 6.0 % (4.0-6.0) 07/19/21 05:09 Calculated Osmolality 283 mOsm/kg (285-295) L 07/18/21 17:24 Calcium 9.9 mg/dL (8.5-10.5) 07/18/21 17:24 Total Bilirubin 0.2 mg/dL (0.15-1.2) 07/18/21 17:24 AST 18 U/L (0-32) 07/18/21 17:24 ALT 14 U/L (0-33) 07/18/21 17:24 Alkaline Phosphatase 82 IU/L (35-105) 07/18/21 17:24 Total Protein 6.5 g/dL (6.6-8.7) L 07/18/21 17:24 Albumin 3.0 g/dL (3.5-5.2) L 07/18/21 17:24 Globulin 3.5 g/dL (1.3-4.6) 07/18/21 17:24 Triglycerides 183 mg/dL (0-150) H 07/19/21 05:09 Cholesterol 151 mg/dL (0-200) 07/19/21 05:09 LDL Cholesterol, Calc 84 mg/dL (50-129) 07/19/21 05:09 HDL Cholesterol 30 mg/dL (60-100) L 07/19/21 05:09 LDL/HDL Ratio 2.80 RATIO (0.00-3.22) 07/19/21 05:09 Cholesterol/HDL Ratio 5.03 mg/dL (0.0-4.40) H 07/19/21 05:09 TSH 6.95 uIU/mL (0.27-4.20) H 07/18/21 13:15 Free T4 1.24 ng/dL (0.82-1.77) 07/18/21 17:54 Urine Color Yellow (Yellow) 07/18/21 11:51 Urine Appearance Cloudy (CLEAR) 07/18/21 11:51 Urine pH 5 (5-7) 07/18/21 11:51 Ur Specific [place] 1.015 (1.005-1.030) 07/18/21 11:51 Urine Protein 3+ (Negative) H 07/18/21 11:51 Urine Glucose (UA) Norm (Normal) 07/18/21 11:51 Urine Ketones Negative (Negative) 07/18/21 11:51 Urine Blood Neg (Negative) 07/18/21 11:51 Urine Nitrate Positive (Negative) H 07/18/21 11:51 Urine Bilirubin Neg (Negative) 07/18/21 11:51 Urine Urobilinogen Norm mg/dL (Negative) 07/18/21 11:51 Ur Leukocyte Esterase Negative (Negative) 07/18/21 11:51 Urine RBC None /hpf (0-2) 07/18/21 11:51 Urine WBC 15-25 /hpf (0-5) H 07/18/21 11:51 Ur Squamous Epith Cells 25-40 /hpf (0-5) H 07/18/21 11:51 Ur Transition Epith Cell 0-4 /hpf 07/18/21 11:51 Amorphous Sediment Not Reportable 07/18/21 11:51 Urine Bacteria 4+ /hpf (NONE) H 07/18/21 11:51 Vitals Last Vital Signs Temp 97.8 F 07/19/21 07:33 Pulse 69 07/19/21 09:06 Resp 16 07/19/21 09:06 BP 122/84 07/19/21 07:33 Pulse Ox 94 07/19/21 09:06 Discharge Plan Discharge Patient Disposition: Home Condition: Stable Prescriptions: New Plavix 75 mg tablet 75 mg PO DAILY Qty: 20 0RF aspirin [Aspirin Low Dose] 81 mg tablet,delayed release (DR/EC) 81 mg PO DAILY Qty: 90 2RF Continued albuterol sulfate [Ventolin HFA] 90 mcg/actuation HFA aerosol inhaler 2 puff INHALATION QID PRN (Reason: shortness of breath or wheezing) 90 Days Qty: 54 5RF cyclobenzaprine 10 mg tablet See Rx Instructions .ROUTE .COMPLEX Qty: 180 1RF Dose Instruction: TAKE 1 TABLET BY MOUTH TWICE DAILY NEEDED FOR MUSCLE SPASM(S) Rx Instructions: TAKE 1 TABLET BY MOUTH TWICE DAILY NEEDED FOR MUSCLE SPASM(S) furosemide [Lasix] 20 mg tablet 20 mg PO QAM 90 Days Qty: 90 1RF insulin glargine 100 unit/mL solution 40 unit SUBCUT BID 90 Days Qty: 72 2RF Rx Instructions: to replace pens levothyroxine 112 mcg tablet 112 mcg PO DAILY 90 Days Qty: 90 0RF Rx Instructions: Take with 50 mcg to equal 162 mcg daily levothyroxine 50 mcg tablet 50 mcg PO DAILY 90 Days Qty: 90 0RF Rx Instructions: Take with 112 mcg to equal 162 mcg daily lisinopril 20 mg tablet 20 mg PO DAILY 90 Days Qty: 90 1RF metoprolol succinate 100 mg tablet extended release 24 hr 100 mg PO DAILY 90 Days Qty: 90 1RF ondansetron HCl [Zofran] 4 mg tablet 4 mg PO DAILY 90 Days Qty: 90 1RF Rx Instructions: in the morning pregabalin [Lyrica] 150 mg capsule 150 mg PO TID 30 Days Qty: 90 2RF Dialyvite Vitamin D3 Max 1,250 mcg (50,000 unit) tablet See Rx Instructions .ROUTE .COMPLEX Qty: 13 1RF Dose Instruction: TAKE 1 TABLET EVERY WEEK Rx Instructions: TAKE 1 TABLET EVERY WEEK fluticasone propionate 50 mcg/actuation spray,suspension 1 spray INTRANASAL BID 90 Days Qty: 54.6 3RF nystatin 100,000 unit/gram ointment See Rx Instructions .ROUTE .COMPLEX Qty: 30 10RF Dose Instruction: APPLY TO AFFECTED AREA TOPICALLY TWICE DAILY Rx Instructions: APPLY TO AFFECTED AREA TOPICALLY TWICE DAILY nystatin [Nyamyc] 100,000 unit/gram powder See Rx Instructions .ROUTE .COMPLEX Qty: 60 2RF Dose Instruction: APPLY TOPICALLY DAILY Rx Instructions: APPLY TOPICALLY DAILY duloxetine [Cymbalta] 20 mg capsule,delayed release(DR/EC) 20 mg PO DAILY Qty: 30 2RF Rx Instructions: in addition to the 60mg daily TO EQUAL 80 MG clonazepam 0.5 mg tablet 0.5 mg PO QDAY PRN (Reason: anxiety) Qty: 30 2RF metformin 500 mg tablet 500 mg PO DAILY 0RF amitriptyline 50 mg tablet 100 mg PO BEDTIME 0RF montelukast 10 mg tablet 10 mg PO DAILY 0RF hydrochlorothiazide 25 mg tablet 25 mg PO DAILY 0RF Cymbalta 60 mg capsule,delayed release(DR/EC) 60 mg PO DAILY 0RF Rx Instructions: TAKE WITH 20MG DAILY TO EQUAL 80MG DAILY Rexulti 4 mg tablet 4 mg PO DAILY 0RF Changed atorvastatin 10 mg tablet 20 mg PO DAILY Qty: 60 0RF Discontinued meloxicam 15 mg tablet 15 mg PO DAILY 0RF Discharge Orders: Discharge Order (Routine); Ordered 07/19/21 Ordered By: Adonay Higuera Other Ambulatory Orders: MCT/Event Monitor 14 Days (Routine) Timeframe: 14 Day Facility: [facility] - Location: Radiology Ordered By: Adonay Higuera Physical Therapy Eval and Treat Outpatient (Order) Timeframe: 2 Months Facility: [facility] - Location: Physical Therapy Ordered By: Adonay Higuera Referrals: Rocio Bynum MD [Primary Care Provider] - 07/27/21 9:00 am Discharge Diet: Regular Discharge Activity: Increase activity as tolerated Patient Instructions: Clopidogrel (By mouth) (Plavix), Urinary Tract Infection in Women (DC), Ischemic Stroke (DC), Opioid Safety Activity Restrictions/Additional Instructions: APPOINTMENT FOR [facility] ON MondayJULY 22 AT 10:45 Discharge Attestations Time Spent in Discharge Care*: less than 30 min Quality Metrics Clinical Quality Measures [ No reported AMI, CVA or VTE this stay] Coding Level of Care Code Acute Chg FW DC note Diagnoses Acute CVA (cerebrovascular accident) I63.9 Acute cystitis N30.00
[2021-07-19 11:37] LABS: Glucose Point of Care 108 mg/dL (70-110)
--- NOTE | 2021-07-19 12:02 | PC.CHAP ---
Pastoral Care Encounter/Spiritual Assessment Type of Contact [] Declined weekend receptionist visit [] Patient/Family/Request visit [] Outpatient visit [] Follow-up visit [] Physician referral [] Code/Alert [x Routine visit [] Staff referral [] Actively dying [] Patient sleeping [] Family support [] [] Out of room [] Palliative care [] [] Receiving care in room [] Pre-surgical visit [] Trauma [] Long length of stay [] ICU visit [] Other: Relational/Emotional Strength [x Patient feels connected with others/family/visitors/staff [] Distress [] Loneliness/isolation [] Abandonment Spirituality of Patient [x] Person of Grace [x] Attends Lutheran of their Grace [x] Believes in Prayer [] Reads Bible or Jainism materials [] There are Spiritual issues to be addressed Hospital Cleaner Interventions [x] Prayer [x Active listening [x] Non-anxious presence [x] Spiritual/emotional support [] Crisis/trauma care [] Spiritual counseling [] Bereavement support [] Provided bereavement packet [] Provided Bible/devotional materials [] Provided toy/stuffed animal, coloring book to patient or family member [] Provided Communion [] Anointing/[place] [] Salvation [x Completed spiritual assessment [] Other: Impact on Illness or Injury [] Angry [] Fearful [] Anxious [] Often cries [] Exhaustion [] Unable to work [] Unable to attend rastafari [] Unable to walk/stand [] Unable to read [] Unable to drive [] Unable to eat/drink [] Unable to sleep [] Unable to be with family [] Patient intubated [] Other: Summary Time spent with patient 10 min
--- NOTE | 2021-07-19 12:10 | PC.NURSE ---
Patient verbalized understanding of discharge instructions, home medications, and follow up appointments.
== END 2021-07-19 13:20 | disposition home or self-care (01) ==
LOC: ER 13:05 → MEDSURG 14:36
PROVIDERS: Admitting Provider Internal Medicine; Emergency Provider Emergency Medicine; PCP Family Medicine; Visit Provider Internal Medicine
DX: I63.9 Cerebral infarction, unspecified (principal); N30.00 Acute cystitis without hematuria; I10 Essential (primary) hypertension; E78.5 Hyperlipidemia, unspecified; E11.40 Type 2 diabetes mellitus with diabetic neuropathy, unspecified; Z79.4 Long term (current) use of insulin; E66.9 Obesity, unspecified; Z68.43 Body mass index [BMI] 50.0-59.9, adult; G47.33 Obstructive sleep apnea (adult) (pediatric); J45.909 Unspecified asthma, uncomplicated; K21.9 Gastro-esophageal reflux disease without esophagitis; E03.9 Hypothyroidism, unspecified
CPT/HCPCS: 36415; 36416; 70450; 71045; 80053; 80061; 81001; 82962; 83036; 84439; 84443; 85025; 87077; 87086; 87186; 92523; 92610; 93005; 93306; 93880; 96365; 96372; 99285; G0378; J0696; J1644; J1815; Q0162

== ENCOUNTER → 2021-07-22 10:34 | Outpatient (BNVA) | payer MEDICARE, MEDICAID, SELFPAY | PROVIDERS: PCP Family Medicine; Visit Provider Internal Medicine | DX: I63.9 Cerebral infarction, unspecified (principal); R00.1 Bradycardia, unspecified; R00.0 Tachycardia, unspecified | CPT/HCPCS: 93270 ==

== ENCOUNTER → 2021-08-16 09:34 | Outpatient (BNVA) | payer MEDICARE, MEDICAID, SELFPAY | PROVIDERS: PCP Family Medicine; Visit Provider Family Medicine | DX: E03.9 Hypothyroidism, unspecified (principal); I10 Essential (primary) hypertension | CPT/HCPCS: 80048; 84443; 85025 ==

== ENCOUNTER → 2021-09-08 00:01 | Outpatient (BNVA) | payer MEDICARE, MEDICAID, SELFPAY | PROVIDERS: PCP Family Medicine; Visit Provider Family Medicine | DX: Z00.00 Encounter for general adult medical examination without abnormal findings (principal) | CPT/HCPCS: 81000; 87077; 87086; 87184 ==

== ENCOUNTER → 2021-12-01 09:43 | Outpatient (BNVA) | payer MEDICARE, MEDICAID, SELFPAY | PROVIDERS: PCP Family Medicine; Visit Provider Family Medicine | DX: I10 Essential (primary) hypertension (principal); E11.8 Type 2 diabetes mellitus with unspecified complications; N18.2 Chronic kidney disease, stage 2 (mild); E03.9 Hypothyroidism, unspecified; I63.89 Other cerebral infarction; G47.33 Obstructive sleep apnea (adult) (pediatric) | CPT/HCPCS: 80048; 83036; 84443 ==

== ENCOUNTER 2022-01-05 06:00 | Outpatient (RCR) | payer MEDICARE, MEDICAID, SELFPAY | END 2022-01-12 23:59 | disposition home or self-care (01) | LOC: MST 06:00 | PROVIDERS: PCP Family Medicine; Visit Provider Family Medicine | DX: I69.30 Unspecified sequelae of cerebral infarction (principal) | CPT/HCPCS: 92507; 92523 ==

== ENCOUNTER 2022-01-13 06:00 | Outpatient (RCR) | payer MEDICARE, MEDICAID, SELFPAY | END 2022-02-11 23:59 | disposition home or self-care (01) | LOC: MST 06:00 | PROVIDERS: PCP Family Medicine; Visit Provider Family Medicine | DX: I69.920 Aphasia following unspecified cerebrovascular disease (principal) | CPT/HCPCS: 92507 ==

== ENCOUNTER 2022-02-12 06:00 | Outpatient (RCR) | payer MEDICARE, MEDICAID, SELFPAY | END 2022-03-14 23:59 | disposition home or self-care (01) | LOC: MST 06:00 | PROVIDERS: PCP Family Medicine; Visit Provider Family Medicine | DX: I69.920 Aphasia following unspecified cerebrovascular disease (principal) | CPT/HCPCS: 92507 ==

== ENCOUNTER → 2022-02-15 09:58 | Outpatient (BNVA) | payer MEDICARE, MEDICAID, SELFPAY | PROVIDERS: PCP Family Medicine; Visit Provider Family Medicine | DX: E11.8 Type 2 diabetes mellitus with unspecified complications (principal); N18.2 Chronic kidney disease, stage 2 (mild); E03.9 Hypothyroidism, unspecified | CPT/HCPCS: 80053; 83036; 84439; 84443; 84481; 85025 ==

== ENCOUNTER → 2022-04-19 10:47 | Outpatient (BNVA) | payer MEDICARE, MEDICAID, SELFPAY | PROVIDERS: PCP Family Medicine; Visit Provider Family Medicine | DX: E03.9 Hypothyroidism, unspecified (principal); E78.2 Mixed hyperlipidemia; H60.90 Unspecified otitis externa, unspecified ear; G62.9 Polyneuropathy, unspecified; J30.1 Allergic rhinitis due to pollen; I10 Essential (primary) hypertension; E11.8 Type 2 diabetes mellitus with unspecified complications; H60.8X2 Other otitis externa, left ear; G89.29 Other chronic pain | CPT/HCPCS: 84439; 84443; 84481 ==

== ENCOUNTER 2022-06-19 16:08 | Emergency (ER) | payer MEDICARE, MEDICAID, SELFPAY ==
[2022-06-19 16:09] VITALS: BMI 51.2
[2022-06-19 16:13] VITALS: BP 167/96; PULSE 114; RESP 19; TEMP 36.6; O2SAT 94
--- NOTE | 2022-06-19 16:27 | XRR_ITS ---
PROCEDURE INFORMATION: Exam: XR Abdomen Exam date and time: 06/19/2022 4:45 PM Age: 57 years old Clinical indication: Constipation; Prior surgery; Surgery type: , hysto TECHNIQUE: Imaging protocol: Radiologic exam of the abdomen. Views: Frontal supine view of the abdomen. 1 View. COMPARISON: CR XR chest 1V portable [id number] 07/18/2021 12:40 PM FINDINGS: Gastrointestinal tract: There is significantly increased fecal loading in both the proximal and distal colon. For example the right colon measures up to 11 cm and the left colon measures up to 8.7 cm. No evidence of small bowel or gastric distention. No visible pneumatosis Bones/joints: Mild right hip degenerative changes. XR/XR abdomen 1V* [id number] IMPRESSION: Bilateral significantly increased fecal loading
--- NOTE | 2022-06-19 16:34 | W.ED.ABDPA2 ---
HPI - Abdominal Pain General: Chief Complaint: Abdominal Pain Stated Complaint: CONSTIPATED Time Seen by Provider: 06/19/22 16:13 Source: patient Mode of arrival: EMS Limitations: no limitations History of Present Illness: This 57-year-old female with a past history of diabetes, CKD, depression and CVA presents to the ER with constipation and generalized weakness. Patient has not had a bowel movement in about 6 days. She has no prior history of fecal impaction. She denies fever, headache, chest pain or shortness of breath. Associated Symptoms: Reports constipation; Denies chills and dysuria Review of Systems Const: Reports: other (Weakness); Denies: chills, body aches or change in appetite Eyes: Denies: change in vision or eye discharge ENMT: Denies: throat pain, dental pain or nasal discharge Card: Denies: chest pain or lightheadedness GI: Reports: constipation : Denies: dysuria Musc: Denies: neck pain or back pain Neuro: Denies: headache(s) or weakness in extremities Psych: Denies: depression Daniel/Lymph: Denies: easy bruising All/Imm: Denies: urticaria, tongue swelling or facial swelling PFSH ED PFSH: Medical History Allergic rhinitis Asthma Chronic bilateral low back pain Chronic idiopathic pain syndrome Chronic post-traumatic stress disorder 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 Essential hypertension Generalized anxiety disorder GERD (gastroesophageal reflux disease) Hyperlipidemia Hypothyroidism Insomnia Neuropathy CIERRA (obstructive sleep apnea) Psychiatric care Vitamin D deficiency Surgical History H/O section H/O: hysterectomy History of carpal tunnel surgery History of knee replacement Family History Other CAD (coronary artery disease) Diabetes Social History Smoking and tobacco status: never smoked Alcohol intake: former Lives independently: Yes Household members: significant other Current occupational status: retired and disabled Female Reproductive History: Spontaneous abortions: No Physical Exam Const: COMMON NORMALS: no acute distress, patient oriented x3, no limitations and alert OTHER: Morbidly obese HENMT: COMMON NORMALS: normocephalic HEAD & SCALP: normocephalic Eye: COMMON NORMALS: EOMs intact bilaterally Neck/C-Spine: COMMON NORMALS: full ROM and supple Chest: COMMONS NORMALS: normal inspection of the chest Resp: COMMON NORMALS: normal respiratory effort, No retractions, No use of accessory muscles and clear to auscultation bilaterally AUSCULTATION: clear to auscultation bilaterally Cardio: COMMON NORMALS: regular rate, regular rhythm and No murmurs present (Cardio) RATE: regular rate RHYTHM: regular rhythm GI: OTHER: Abdomen is large, minimal nonspecific discomfort on exam. No rigidity. Normal bowel sounds. : COMMON NORMALS: Yes no CVA tenderness BLADDER/KIDNEY EXAM: Yes no CVA tenderness Back/Pelvis: COMMON NORMALS: no CVA tenderness and no thoracic nor lumbar tenderness Extremity: GENERAL: Yes normal exam except as noted Neuro: COMMON NORMALS: patient oriented x3 and no focal motor deficits SENSORIUM/ORIENTATION: Yes alert Psych: COMMON NORMALS: mental status grossly normal and cooperative Course Vital Signs: Vital signs: Vital Signs Temperature 97.9 F 06/19/22 16:13 Pulse Rate 120 H 06/19/22 20:43 Respiratory Rate 22 H 06/19/22 20:43 Blood Pressure 144/103 06/19/22 20:43 Pulse Oximetry 96 06/19/22 20:43 Oxygen Delivery Me thod 06/19/22 18:34 MDM - Abdominal Pain Medical Decision Making Medical decision making: Patient primarily has constipation for the last 7 days. Rectal exam rules out fecal impaction. CT abdomen/pelvis confirms constipation and is suggestive of early diverticulitis. There is no perforation or abscess. She will be treated with antibiotics and laxatives. Lab Data 06/19/22 16:45 06/19/22 16:45 Labs/Radiology: Radiology Impressions Abdomen X-Ray 06/19/22 16:27 IMPRESSION: Bilateral significantly increased fecal loading Abdomen/Pelvis CT 06/19/22 18:18 IMPRESSION: 1. Proximal colonic fecal distention. There is a gradual transition and mild inflammation in the sigmoid colon. This could be stercoral colitis or a mild acute diverticulitis. No perforation or abscess. 2. Nonobstructing gallstone Laboratory Results WBC 18.2 10^3/uL (4.0-10.0) H 06/19/22 16:45 RBC 4.61 10^6/uL (4.1-5.3) 06/19/22 16:45 Hgb 14.0 g/dL (11.5-15.3) 06/19/22 16:45 Hct 41.4 % (37.0-47.0) 06/19/22 16:45 MCV 89.8 fl (81-99) 06/19/22 16:45 MCH 30.4 pg (28.0-34.0) 06/19/22 16:45 MCHC 33.8 g/dL (30.0-36.0) 06/19/22 16:45 RDW 13.7 % (12.1-15.1) 06/19/22 16:45 Plt Count 304 10^3/cmm (130-400) 06/19/22 16:45 MPV 9.3 fL (7.4-10.4) 06/19/22 16:45 Neut % (Auto) 87.0 % 06/19/22 16:45 Lymph % (Auto) 7.0 % 06/19/22 16:45 [place] % (Auto) 4.7 % 06/19/22 16:45 Eos % (Auto) 0.4 % 06/19/22 16:45 Baso % (Auto) 0.3 % 06/19/22 16:45 Neut # (Auto) 15.82 10^3/uL (1.8-7.7) H 06/19/22 16:45 Lymph # (Auto) 1.3 10^3/uL (0.8-4.8) 06/19/22 16:45 [place] # (Auto) 0.9 10^3/uL (0.2-0.9) 06/19/22 16:45 Eos # (Auto) 0.1 10^3/uL (0.0-0.8) 06/19/22 16:45 Baso # (Auto) 0.1 10^3/uL (0.0-0.1) 06/19/22 16:45 Nucleated RBC % (auto) 0 % 06/19/22 16:45 Nucleated RBCs # 0.0 /100WBC 06/19/22 16:45 Sodium 126 mmol/L (136-145) L 06/19/22 16:45 Potassium 3.1 mmol/L (3.5-5.1) L 06/19/22 16:45 Chloride 86 mmol/L (98-107) L 06/19/22 16:45 Carbon Dioxide 25 mmol/L (22-29) 06/19/22 16:45 Anion Gap 18.1 (5-19) 06/19/22 16:45 BUN 10 mg/dL (6-20) 06/19/22 16:45 Creatinine 1.1 mg/dL (0.5-0.9) H 06/19/22 16:45 GFR Calculation 51.6 mL/min (90-130) L 06/19/22 16:45 Glucose 159 mg/dL (65-115) H 06/19/22 16:45 Calculated Osmolality 264 mOsm/kg (285-295) L 06/19/22 16:45 Calcium 10.0 mg/dL (8.5-10.5) 06/19/22 16:45 Total Bilirubin 0.6 mg/dL (0.15-1.2) 06/19/22 16:45 AST 20 U/L (0-32) 06/19/22 16:45 ALT 19 U/L (0-33) 06/19/22 16:45 Alkaline Phosphatase 95 U/L (35-105) 06/19/22 16:45 Total Protein 6.9 g/dL (6.6-8.7) 06/19/22 16:45 Albumin 4.1 g/dL (3.5-5.2) 06/19/22 16:45 Globulin 2.8 g/dL (1.3-4.6) 06/19/22 16:45 Discharge Plan Discharge Patient Disposition: Home Clinical Impression: Diverticulitis large intestine, Constipation by delayed colonic transit Condition: Stable Prescriptions: New ciprofloxacin HCl 500 mg tablet 500 mg PO Q12H Qty: 14 0RF metronidazole 500 mg tablet 500 mg PO TID 7 Days Qty: 21 0RF Senokot 8.6 mg tablet 8.6 mg PO DAILY PRN (Reason: constipation) Qty: 10 0RF Golytely 236-22.74-6.74 -5.86 gram recon soln 240 ml PO Q10M Qty: 4000 0RF Rx Instructions: Until have the first bowel movement No Action metoprolol succinate 100 mg tablet extended release 24 hr 100 mg PO DAILY 90 Days Qty: 90 1RF Hold Instructions: Home Medication placed on hold at Doctor's office Dialyvite Vitamin D3 Max 1,250 mcg (50,000 unit) tablet See Rx Instructions .ROUTE .COMPLEX Qty: 13 1RF Dose Instruction: TAKE 1 TABLET EVERY WEEK Rx Instructions: TAKE 1 TABLET EVERY WEEK fluticasone propionate 50 mcg/actuation spray,suspension 1 spray INTRANASAL BID 90 Days Qty: 54.6 3RF hydrochlorothiazide 25 mg tablet 25 mg PO DAILY 90 Days Qty: 90 0RF Hold Instructions: Home Medication placed on hold at Doctor's office (DME) FreeStyle Lay 14 Day Sensor Kit See Rx Instructions .Route Qty: 2 11RF Rx Instructions: Test 3 times daily miscellaneous medical supply Misc See Rx Instructions miscellaneous .COMPLEX Qty: 1 0RF Rx Instructions: rolling walker with seat, wide seat as directed; insulin glargine 100 unit/mL solution 35 unit SUBCUT BID 90 Days Qty: 63 2RF Rx Instructions: to replace pens atorvastatin 20 mg tablet 20 mg PO DAILY 90 Days Qty: 90 3RF [id number] 3.5-10,000-1 mg/mL-unit/mL-% drops,suspension 4 drp otic (ear) Q8H 10 Days Qty: 10 0RF Rx Instructions: left ear pregabalin [Lyrica] 150 mg capsule 150 mg PO TID 30 Days Qty: 90 2RF cyclobenzaprine 10 mg tablet See Rx Instructions .ROUTE .COMPLEX Qty: 180 1RF Dose Instruction: TAKE 1 TABLET BY MOUTH TWICE DAILY NEEDED FOR MUSCLE SPASM(S) Rx Instructions: TAKE 1 TABLET BY MOUTH TWICE DAILY NEEDED FOR MUSCLE SPASM(S) alcohol swabs [Easy Touch Alcohol Prep Pads] Pads, Medicated See Rx Instructions .ROUTE .COMPLEX Qty: 100 5RF Dose Instruction: USE 1 PAD TOPICALLY THREE TIMES A DAY NEEDED TO CHECK BLOOD SUGAR Rx Instructions: USE 1 PAD TOPICALLY THREE TIMES A DAY NEEDED TO CHECK BLOOD SUGAR nystatin 100,000 unit/gram ointment See Rx Instructions .ROUTE .COMPLEX Qty: 30 10RF Dose Instruction: APPLY TOPICALLY TO AFFECTED AREAS TWICE DAILY Rx Instructions: APPLY TOPICALLY TO AFFECTED AREAS TWICE DAILY nystatin 100,000 unit/gram powder See Rx Instructions .ROUTE .COMPLEX Qty: 60 10RF Dose Instruction: APPLY TOPICALLY DAILY DIRECTED Rx Instructions: APPLY TOPICALLY DAILY DIRECTED furosemide [Lasix] 20 mg tablet 20 mg PO BID 90 Days Qty: 180 1RF Rx Instructions: 1 in AM, 1 at noon albuterol sulfate [Ventolin HFA] 90 mcg/actuation HFA aerosol inhaler 2 puff INHALATION QID PRN (Reason: shortness of breath or wheezing) 90 Days Qty: 54 5RF clonazepam 0.5 mg tablet 0.5 mg PO QDAY PRN (Reason: anxiety) Qty: 30 2RF amitriptyline 50 mg tablet 100 mg PO BEDTIME Qty: 60 2RF vortioxetine 10 mg tablet 10 mg PO DAILY Qty: 30 2RF (DME) lancets [Accu-Chek Fastclix Lancet Drum] Misc See Rx Instructions .ROUTE .COMPLEX Qty: 204 10RF Dose Instruction: USE WITH GLUCOSE METER THREE TIMES A DAY Rx Instructions: USE WITH GLUCOSE METER THREE TIMES A DAY (DME) insulin syringe-needle U-100 [Comfort EZ Insulin Syringe] 0.5 mL 31 gauge x 5/16 syringe See Rx Instructions .Route Qty: 100 11RF Rx Instructions: to use with insulin BID (DME) Blood Glucose Test Strip See Rx Instructions .Route Qty: 50 11RF Rx Instructions: use to test blood sugar three times daily ondansetron HCl 4 mg tablet 4 mg PO DAILY 90 Days Qty: 90 1RF Rx Instructions: in the morning levothyroxine 150 mcg tablet See Rx Instructions .ROUTE .COMPLEX Qty: 90 0RF Dose Instruction: TAKE 1 TABLET BY MOUTH DAILY Rx Instructions: TAKE 1 TABLET BY MOUTH DAILY metformin 500 mg tablet 500 mg PO DAILY 90 Days Qty: 90 0RF montelukast 10 mg tablet See Rx Instructions .ROUTE .COMPLEX Qty: 30 1RF Dose Instruction: TAKE 1 TABLET BY MOUTH ONCE DAILY Rx Instructions: TAKE 1 TABLET BY MOUTH ONCE DAILY duloxetine [Cymbalta] 60 mg capsule,delayed release(DR/EC) 60 mg PO DAILY Qty: 30 0RF [place] Low Dose Aspirin 81 mg tablet,delayed release (DR/EC) 81 mg PO DAILY Qty: 90 2RF Discharge Orders: Discharge ED (Routine); Ordered 06/19/22 Ordered By: Kofi Ruffin Referrals: Rocio Bynum MD [Primary Care Provider] - Discharge Activity: Resume usual activity Patient Instructions: Opioid Safety, Pain Management Activity Restrictions/Additional Instructions: Increase fiber in your diet including fruits and vegetables. Drink GoLytely until he have the first bowel movement. After that, stop drinking. Then use the prescribed Senokot to maintain regular bowel movements. Maintain adequate fluid intake Follow-up with your primary care physician. In 3 to 5 days for reevaluation. Return if you develop worsening abdominal pain, abdominal distention, fever or any new concerning symptoms Coding Level of Care Code ED Sandwich Artist for Chg Fwd Exam Comprehensive
[2022-06-19 17:07] LABS: Basophils # 0.1 10^3/uL (0.0-0.1); Basophils % 0.3 %; Eosinophils # 0.1 10^3/uL (0.0-0.8); Eosinophils % 0.4 %; Hematocrit 41.4 % (37.0-47.0); Lymphocytes # 1.3 10^3/uL (0.8-4.8); Mean Corpuscular HGB Conc 33.8 g/dL (30.0-36.0); Mean Corpuscular Hemoglobin 30.4 pg (28.0-34.0); Mean Corpuscular Volume 89.8 fl (81-99); Mean Platelet Volume 9.3 fL (7.4-10.4); Monocytes # 0.9 10^3/uL (0.2-0.9); Monocytes % 4.7 %; Neutrophils # 15.82 10^3/uL (1.8-7.7); Nucleated Red Blood Cells % 0 %; Platelet Count 304 10^3/cmm (130-400); Red Blood Count 4.61 10^6/uL (4.1-5.3); Red Cell Distribution Width 13.7 % (12.1-15.1); White Blood Count 18.2 10^3/uL (4.0-10.0)
[2022-06-19 17:18] LABS: Alanine Aminotransferase 19 U/L (0-33); Albumin Level 4.1 g/dL (3.5-5.2); Alkaline Phosphatase 95 U/L (35-105); Anion Gap 18.1 (5-19); Aspartate Amino Transferase 20 U/L (0-32); Blood Urea Nitrogen 10 mg/dL (6-20); Carbon Dioxide 25 mmol/L (22-29); Chloride 86 mmol/L (98-107); Globulin 2.8 g/dL (1.3-4.6); Glomerular Filtration Rate 51.6 mL/min (90-130); Glucose 159 mg/dL (65-115); Osmolality Calculated 264 mOsm/kg (285-295); Potassium 3.1 mmol/L (3.5-5.1); Sodium 126 mmol/L (136-145); Total Bilirubin 0.6 mg/dL (0.15-1.2); Total Protein 6.9 g/dL (6.6-8.7)
--- NOTE | 2022-06-19 18:18 | CTR_ITS ---
PROCEDURE INFORMATION: Exam: CT Abdomen And Pelvis With Contrast Exam date and time: 06/19/2022 6:31 PM Age: 57 years old Clinical indication: Condition or disease; Intestinal condition; Constipation; Prior surgery; Surgery date: 6+ months; Surgery type: C section, hyster; Additional info: Abdominal pain, constipation. TECHNIQUE: Imaging protocol: Computed tomography of the abdomen and pelvis with contrast. Radiation optimization: All CT scans at this facility use at least one of these dose optimization techniques: automated exposure control; mA and/or kV adjustment per patient size (includes targeted exams where dose is matched to clinical indication); or iterative reconstruction. Contrast material: OMNI 350; Contrast volume: 100 ml; Contrast route: INTRAVENOUS (IV); Other protocol: This patient has received [address] and 0 known cardiac nuclear medicine studies in the 12 months prior to the current study. COMPARISON: CR (ABDOMEN, ) 06/19/2022 4:45 PM RADIATION DOSE METRICS: Total DLP (mGy-cm): 1273.53 FINDINGS: Liver: Normal. No mass. Gallbladder and bile ducts: A 2.8 cm gallstone in the gallbladder is nonobstructing. Pancreas: The pancreas is somewhat fatty but otherwise normal. Spleen: Normal. No splenomegaly. Adrenal glands: Normal. No mass. Kidneys and ureters: Normal. No hydronephrosis. Stomach and bowel: The proximal 2/3 of the colon is distended with fecal material measuring up to 8 cm in diameter. There are mild inflammatory changes around the distal descending and proximal sigmoid colon and the bowel decreases in diameter in this region. There are a few diverticula in this region. No perforation or abscess. The very distal colon is completely decompressed. Small bowel is normal. There are small clips or pellets within the nondistended stomach. Appendix: No evidence of appendicitis. Intraperitoneal space: Unremarkable. No free air. No significant fluid collection. Vasculature: Unremarkable. No abdominal aortic aneurysm. Lymph nodes: Unremarkable. No enlarged lymph nodes. Urinary bladder: Unremarkable as visualized. Reproductive: Unremarkable as visualized. Bones/joints: Mild chronic degenerative changes in the lower lumbar spine. Soft tissues: Unremarkable. CT/CT abdomen pelvis w con* [id number] IMPRESSION: 1. Proximal colonic fecal distention. There is a gradual transition and mild inflammation in the sigmoid colon. This could be stercoral colitis or a mild acute diverticulitis. No perforation or abscess. 2. Nonobstructing gallstone
[2022-06-19 18:34] VITALS: BP 177/98; PULSE 112; RESP 18; O2SAT 95
[2022-06-19] MEDS: iohexol 350 mg/mL 500 mL Btl (per mL) IV (18:34)
[2022-06-19 20:35] VITALS: RESP 22
[2022-06-19] MEDS: metroNIDAZOLE 500 MG Tablet PO (20:35)
[2022-06-19] MEDS: morphine 4 mg/mL SDV 1 mL IVP (20:35)
[2022-06-19] MEDS: ciprofloxacin 500 mg Tablet PO (20:35)
[2022-06-19] MEDS: Fleet Enema 133 mL Enema PR (20:36)
[2022-06-19 20:43] VITALS: BP 144/103; PULSE 120; RESP 22; O2SAT 96
== END 2022-06-19 20:50 | disposition home or self-care (01) ==
PROVIDERS: Emergency Provider Family Medicine; PCP Family Medicine
DX: K57.32 Diverticulitis of large intestine without perforation or abscess without bleeding (principal); K59.01 Slow transit constipation; Z79.82 Long term (current) use of aspirin; Z79.4 Long term (current) use of insulin; Z79.84 Long term (current) use of oral hypoglycemic drugs; E11.9 Type 2 diabetes mellitus without complications; I10 Essential (primary) hypertension; E78.5 Hyperlipidemia, unspecified
CPT/HCPCS: 74018; 74177; 80053; 85025; 96374; 99285; J2270; Q9967

== ENCOUNTER → 2022-07-19 09:38 | Outpatient (BNVA) | payer MEDICARE, MEDICAID, SELFPAY | PROVIDERS: PCP Family Medicine; Visit Provider Family Medicine | DX: J45.909 Unspecified asthma, uncomplicated (principal); I10 Essential (primary) hypertension; R60.0 Localized edema; E11.8 Type 2 diabetes mellitus with unspecified complications; E03.9 Hypothyroidism, unspecified; R11.0 Nausea; J30.1 Allergic rhinitis due to pollen; G62.9 Polyneuropathy, unspecified; E11.9 Type 2 diabetes mellitus without complications; N18.2 Chronic kidney disease, stage 2 (mild) | CPT/HCPCS: 80048; 83036; 84443 ==

== ENCOUNTER → 2022-10-18 13:59 | Outpatient (BNVA) | payer MEDICARE, MEDICAID, SELFPAY | PROVIDERS: PCP Family Medicine; Visit Provider Family Medicine | DX: G62.9 Polyneuropathy, unspecified (principal); N18.2 Chronic kidney disease, stage 2 (mild); E03.9 Hypothyroidism, unspecified; E78.2 Mixed hyperlipidemia; E11.8 Type 2 diabetes mellitus with unspecified complications; N39.46 Mixed incontinence; R15.9 Full incontinence of feces; I10 Essential (primary) hypertension; G89.29 Other chronic pain; R15.1 Fecal smearing | CPT/HCPCS: 80048; 80061; 83036; 84439; 84443; 84481; 85025 ==

== ENCOUNTER → 2023-01-31 13:50 | Outpatient (BNVA) | payer MEDICARE, MEDICAID, SELFPAY | PROVIDERS: PCP Family Medicine; Visit Provider Family Medicine | DX: G62.9 Polyneuropathy, unspecified (principal); J30.1 Allergic rhinitis due to pollen; I10 Essential (primary) hypertension; E11.8 Type 2 diabetes mellitus with unspecified complications; R60.0 Localized edema; J45.909 Unspecified asthma, uncomplicated; K59.00 Constipation, unspecified; E11.9 Type 2 diabetes mellitus without complications; E03.9 Hypothyroidism, unspecified; G47.33 Obstructive sleep apnea (adult) (pediatric); G89.29 Other chronic pain; J45.20 Mild intermittent asthma, uncomplicated; N18.2 Chronic kidney disease, stage 2 (mild); F41.1 Generalized anxiety disorder; E87.6 Hypokalemia | CPT/HCPCS: 80048; 83036; 83735; 84439; 84443; 84481 ==

== ENCOUNTER → 2023-08-01 11:30 | Outpatient (BNVA) | payer MEDICARE, MEDICAID, SELFPAY | PROVIDERS: PCP Family Medicine; Referring Provider Family Medicine; Visit Provider Family Medicine | DX: J45.909 Unspecified asthma, uncomplicated (principal); E78.2 Mixed hyperlipidemia; I10 Essential (primary) hypertension; R60.0 Localized edema; E11.8 Type 2 diabetes mellitus with unspecified complications; E03.9 Hypothyroidism, unspecified; J30.1 Allergic rhinitis due to pollen; E11.9 Type 2 diabetes mellitus without complications; G62.9 Polyneuropathy, unspecified; Z68.43 Body mass index [BMI] 50.0-59.9, adult; G89.29 Other chronic pain; N18.2 Chronic kidney disease, stage 2 (mild); J45.20 Mild intermittent asthma, uncomplicated | CPT/HCPCS: 80053; 83036; 84439; 84443; 84481 ==

== ENCOUNTER → 2023-10-31 13:53 | Outpatient (BNVA) | payer MEDICARE, MEDICAID, SELFPAY | PROVIDERS: PCP Family Medicine; Visit Provider Family Medicine | DX: E11.8 Type 2 diabetes mellitus with unspecified complications (principal); I10 Essential (primary) hypertension; E03.9 Hypothyroidism, unspecified; E11.9 Type 2 diabetes mellitus without complications; I63.89 Other cerebral infarction; G62.9 Polyneuropathy, unspecified; Z74.09 Other reduced mobility; Z78.9 Other specified health status | CPT/HCPCS: 80048; 83036; 84439; 84443; 84481 ==

== ENCOUNTER 2024-01-15 15:36 | Emergency (ER) | payer MEDICARE, MEDICAID, SELFPAY ==
[2024-01-15 15:48] VITALS: BP 156/126; PULSE 128; RESP 24; TEMP 36.6; O2SAT 98
--- NOTE | 2024-01-15 16:04 | XRR_ITS ---
PROCEDURE INFORMATION: Exam: XR Chest Exam date and time: 01/15/2024 4:07 PM Age: 58 years old Clinical indication: Other: Tachy TECHNIQUE: Imaging protocol: Radiologic exam of the chest. Views: 1 view. COMPARISON: CR XR chest 1V portable [id number] 07/18/2021 12:40 PM FINDINGS: Lungs: The lungs are hypoexpanded. Mild bibasilar atelectasis versus scarring. Right perihilar prominence likely representing overlying vessels. Pleural spaces: Unremarkable. No pleural effusion. No pneumothorax. Heart/Mediastinum: Unremarkable. No cardiomegaly. Bones/joints: Unremarkable. XR/XR chest 1V portable [id number] IMPRESSION: Hypoexpanded lungs with patient rotation limits evaluation. Mild bibasilar atelectasis versus scarring.
--- NOTE | 2024-01-15 16:06 | W.ED.SKABFB ---
Documented by User: MATTHEW Palmer 01/15/24 16:34 HPI - Skin/Abscess/Foreign Bdy General: Chief complaint: Wound/Laceration Stated complaint: lower abd/buttock wounds Time Seen by Provider: 01/15/24 15:46 Source: patient Mode of arrival: EMS Limitations: no limitations History of Present Illness: Patient is a 58-year-old female with an extensive past medical history including generalized anxiety disorder, hypothyroidism, morbid obesity with a BMI of 51, obstructive sleep apnea, hyperlipidemia, HTN, GERD, type 2 diabetes, chronic idiopathic pain syndrome, previous CVA left with speech deficits here after she called an ambulance for pain related to chronic skin wounds/rashes involving her pannus and buttocks. Upon arrival she appears significantly anxious, sitting on the edge of her bed hyperventilating and wailing. She has trouble providing history due to some chronic dysarthria. She goes on tangents about the loss of a loved one 21 years ago but they still reside in her heart and again starts wailing. She states she wants her father to come to the ED to be with her. Various other statements unrelated to her visit. I finally was able to somewhat calm her down and direct her enough to tell me why she called an ambulance today-she lifts her pannus to show me her chronic candidal infection crying stating it hurts so bad . complaint: rash Severity: moderate Quality: burning Pain Consistency: constant Relieving factors: none Exacerbating factors: none Context: none Associated symptoms: Deny chills, fever(s) or vomiting Related Data Previous Rx's Medication Instructions Recorded cholecalciferol (vitamin D3) 1,250 See Rx Instructions .Route 02/15/21 mcg (50,000 unit) tablet .COMPLEX #13 tabs (Dialyvite Vitamin D3 Max) aspirin 81 mg tablet,delayed 81 mg PO DAILY #90 tabs 07/19/21 release (Awilda Low Dose Aspirin) nystatin 100,000 unit/gram topical See Rx Instructions .Route 12/10/21 powder .COMPLEX #60 grams miscellaneous medical supply See Rx Instructions miscellaneous 01/04/22 .COMPLEX #1 ea vevnznxc-rheylxqnk-aqpzzkwxa 3.5 4 drp otic (ear) Q8H 10 days #10 mL 04/19/22 mg-10,000 unit/mL-1 % ear drops,susp peg 3350-electrolytes 236 240 ml PO Q10M #4,000 mL 06/19/22 gram-22.74 gram-6.74 gram-5.86 gram solution (Golytely) insulin syringe-needle U-100 0.5 #100 ea 07/19/22 mL 31 gauge x 5/16 (Comfort EZ Insulin Syringe) ondansetron HCl 4 mg tablet 4 mg PO DAILY 90 days #90 tabs 07/19/22 miscellaneous medical supply See Rx Instructions miscellaneous 01/02/23 .COMPLEX #1 ea docusate sodium 100 mg capsule 100 mg PO BID 30 days #60 caps 01/31/23 fluticasone propionate 50 1 spray intranasal BID 90 days 05/02/23 mcg/actuation nasal #54.6 mL spray,suspension alcohol swabs (Easy Touch Alcohol See Rx Instructions .Route 06/22/23 Prep Pads) .COMPLEX #100 ea albuterol sulfate 90 mcg/actuation 2 puff inhalation QID PRN 08/01/23 aerosol inhaler (Ventolin HFA) shortness of breath or wheezing 90 days #54 grams atorvastatin 20 mg tablet 20 mg PO DAILY 90 days #90 tabs 08/01/23 cyclobenzaprine 10 mg tablet See Rx Instructions .Route 08/01/23 .COMPLEX #180 tabs flash glucose scanning reader #1 ea 08/01/23 (FreeStyle Lay 14 Day [place]) furosemide 20 mg tablet 20 mg PO BID 90 days #180 tabs 08/01/23 insulin degludec 100 unit/mL (3 35 unit (0.35 mL) SUBCUT BID 90 08/01/23 mL) subcutaneous pen days #63 mL metformin 500 mg tablet 500 mg PO DAILY 90 days #90 tabs 08/01/23 montelukast 10 mg tablet See Rx Instructions .Route 08/01/23 .COMPLEX #90 tabs flash glucose sensor (FreeStyle #2 ea 08/12/23 Lay 14 Day Sensor kit) nystatin 100,000 unit/gram topical See Rx Instructions .Route 08/21/23 ointment .COMPLEX #30 grams diaper,brief,adult,disposable #210 ea 09/06/23 (Depend Underwear For Women Large) blood sugar diagnostic (OneTouch #200 strips 09/13/23 Verio test strips) lancets 30 gauge (Pure Comfort #200 ea 10/16/23 Lancets) flash glucose sensor (FreeStyle #1 ea 10/19/23 Lay 14 Day Sensor kit) metoprolol succinate 100 mg 100 mg PO DAILY 90 days #90 tabs 10/31/23 tablet,extended release 24 hr miscellaneous medical supply See Rx Instructions miscellaneous 10/31/23 .COMPLEX #1 ea semaglutide 0.25 mg or 0.5 mg (2 0.25 mg (0.368 mL) SUBCUT .WEEKLY 10/31/23 mg/3 mL) subcutaneous pen injector #3 mL (Ozempic) levothyroxine 137 mcg tablet 137 mcg PO DAILY 90 days #90 tabs 11/06/23 pregabalin 150 mg capsule (Lyrica) 150 mg PO TID 30 days #90 caps 12/23/23 amitriptyline 50 mg tablet See Rx Instructions .Route 01/08/24 .COMPLEX #60 tabs cariprazine 1.5 mg capsule 1.5 mg PO DAILY #30 caps 01/08/24 (Vraylar) clonazepam 0.5 mg tablet 0.5 mg PO QDAY PRN anxiety #30 tabs 01/08/24 duloxetine 30 mg capsule,delayed See Rx Instructions .Route 01/08/24 release .COMPLEX #30 caps duloxetine 60 mg capsule,delayed See Rx Instructions .Route 01/08/24 release .COMPLEX #30 caps nystatin 100,000 unit/gram topical 1 applic topical BID #15 grams 01/15/24 cream Allergies Allergy/AdvReac Type Severity Reaction Status Date / Time sulfamethoxazole Allergy hives Verified 01/15/24 15:52 [From Bactrim] trimethoprim [From Bactrim] Allergy hives Verified 01/15/24 15:52 Review of Systems Const: Denies: fever(s), chills, body aches, fatigue or malaise Card: Denies: chest pain Resp: Reports: dyspnea (reports chronic SOB most likely from hypoventilation); Denies: productive cough, non-productive cough or chest congestion GI: Denies: vomiting or diarrhea : Denies: flank pain or dysuria Musc: Reports: other (reports chronic pain all over) Skin/Breast: Reports: rash and erythema Neuro: Denies: headache(s) or dizziness PFS ED PFSH: Medical History Generalized anxiety disorder Psychiatric care Diabetes mellitus type 2 with complications Chronic post-traumatic stress disorder Depressive disorder due to separate medical condition Hypothyroidism Asthma Insomnia Neuropathy Allergic rhinitis Chronic idiopathic pain syndrome Vitamin D deficiency Chronic bilateral low back pain CIERRA (obstructive sleep apnea) Hyperlipidemia GERD (gastroesophageal reflux disease) Essential hypertension Hydrochlorothiazide discontinued due to hypotension Surgical History History of carpal tunnel surgery History of knee replacement H/O: hysterectomy H/O section Family History Other CAD (coronary artery disease) Diabetes Social History Smoking and tobacco/nicotine status: never used tobacco/nicotine Alcohol intake: former Substance/Drug Use: never Lives independently: Yes Household members: significant other Current occupational status: retired and disabled Female Reproductive History: Spontaneous abortions: No Physical Exam Const: COMMON NORMALS: patient oriented x3 and alert GENERAL APPEARANCE: in distress, anxious and other (hyperventilating, wailing/crying) NUTRITIONAL APPEARANCE: obese morbidly obese (BMI of 51.2) ORIENTATION/CONSCIOUSNESS: Yes awake, Yes oriented to person, Yes oriented to place and Yes oriented to time HENMT: COMMON NORMALS: normocephalic and atraumatic HEAD & SCALP: normal to inspection, normocephalic and atraumatic Neck/C-Spine: COMMON NORMALS: no lymphadenopathy and no meningeal signs GENERAL: Yes normal visual inspection Chest: COMMONS NORMALS: normal inspection of the chest and normal palpation of entire chest wall Resp: COMMON NORMALS: normal respiratory effort and clear to auscultation bilaterally EFFORT & INSPECTION: Yes other (tachypneic/hyperventilating) AUSCULTATION: clear to auscultation bilaterally Cardio: COMMON NORMALS: regular rhythm RATE: tachycardic RHYTHM: regular rhythm GI: COMMON NORMALS: Soft to palpation PALPATION: Yes Soft to palpation and No Tenderness to palpation present (GI) OTHER: chronic candidal infection to abdominal pannus; powder has been applied from patient; I do not see any large areas of skin breakdown or ulcers Back/Pelvis: COMMON NORMALS: thoracic and lumbar spine normal to inspection OTHER: chronic candidal wound to gluteal clefts Extremity: GENERAL: Yes normal exam except as noted Neuro: COMMON NORMALS: patient oriented x3 SENSORIUM/ORIENTATION: Yes alert, Yes oriented to person, Yes oriented to place and Yes oriented to time MENINGEAL SIGNS: Yes no meningeal signs Skin: NARRATIVE SKIN EXAM: see above RASHES: rashes noted Course Vital Signs: Vital signs: Vital Signs Temperature 98 F 01/15/24 15:48 Pulse Rate 117 H 01/15/24 18:00 Respiratory Rate 24 H 01/15/24 18:00 Blood Pressure 144/95 01/15/24 18:00 Pulse Oximetry 96 01/15/24 18:00 Oxygen Delivery Me thod Room Air 01/15/24 18:00 MDM - Skin/Abscess/Foreign Bdy Lab Data 01/15/24 16:41 01/15/24 16:41 Radiology Impressions Chest X-Ray 01/15/24 16:04 IMPRESSION: Hypoexpanded lungs with patient rotation limits evaluation. Mild bibasilar atelectasis versus scarring. Laboratory Results WBC 13.08 10^3/uL (3.29-11.43) H 01/15/24 16:41 RBC 4.65 10^6/uL (3.85-5.65) 01/15/24 16:41 Hgb 13.60 g/dL (11.27-16.99) 01/15/24 16:41 Hct 39.7 % (36-47) 01/15/24 16:41 MCV 85.4 fl (85-98) 01/15/24 16:41 MCH 29.2 pg (27-33) 01/15/24 16:41 MCHC 34.3 g/dL (30-55) 01/15/24 16:41 RDW 13.9 % (12.1-15.1) 01/15/24 16:41 Plt Count 277 10^3/cmm (157-399) 01/15/24 16:41 MPV 9.3 fL (7.4-10.4) 01/15/24 16:41 Neut % (Auto) 73.3 % 01/15/24 16:41 Lymph % (Auto) 18.3 % 01/15/24 16:41 Burt % (Auto) 6.7 % 01/15/24 16:41 Eos % (Auto) 0.8 % 01/15/24 16:41 Baso % (Auto) 0.5 % 01/15/24 16:41 Neut # (Auto) 9.60 10^3/uL (1.8-7.7) H 01/15/24 16:41 Lymph # (Auto) 2.4 10^3/uL (0.8-4.8) 01/15/24 16:41 Burt # (Auto) 0.9 10^3/uL (0.2-0.9) 01/15/24 16:41 Eos # (Auto) 0.1 10^3/uL (0.0-0.8) 01/15/24 16:41 Baso # (Auto) 0.1 10^3/uL (0.0-0.1) 01/15/24 16:41 Nucleated RBC % (auto) 0 % 01/15/24 16:41 Nucleated RBCs # 0.0 /100WBC 01/15/24 16:41 Sodium 144 mmol/L (136-145) 01/15/24 16:41 Potassium 3.7 mmol/L (3.5-5.1) 01/15/24 16:41 Chloride 108 mmol/L (98-107) H 01/15/24 16:41 Carbon Dioxide 17 mmol/L (22-29) L 01/15/24 16:41 Anion Gap 22.7 (5-19) H 01/15/24 16:41 BUN 8 mg/dL (6-20) 01/15/24 16:41 Creatinine 0.9 mg/dL (0.5-0.9) 01/15/24 16:41 GFR Calculation 64.8 mL/min (90-130) L 01/15/24 16:41 Glucose 136 mg/dL (65-115) H 01/15/24 16:41 Calculated Osmolality 298 mOsm/kg (285-295) H 01/15/24 16:41 Lactic Acid 1.9 mmol/L (0.5-2.2) 01/15/24 16:41 Calcium 9.0 mg/dL (8.5-10.5) 01/15/24 16:41 Total Bilirubin 1.6 mg/dL (0.15-1.2) H 01/15/24 16:41 AST 22 U/L (0-32) 01/15/24 16:41 ALT 16 U/L (0-33) 01/15/24 16:41 Alkaline Phosphatase 93 U/L (35-105) 01/15/24 16:41 C-Reactive Protein 71.3 mg/L (0.0-4.9) H 01/15/24 16:41 Total Protein 6.6 g/dL (6.6-8.7) 01/15/24 16:41 Albumin 3.7 g/dL (3.5-5.2) 01/15/24 16:41 Globulin 2.9 g/dL (1.3-4.6) 01/15/24 16:41 Urine Color Yellow (Yellow) 01/15/24 18:05 Urine Appearance Slightly cloudy (CLEAR) 01/15/24 18:05 Urine pH Not Reportable 01/15/24 18:05 Ur Specific [place] Not Reportable 01/15/24 18:05 Urine Protein Not Reportable 01/15/24 18:05 Urine Glucose (UA) Not Reportable 01/15/24 18:05 Urine Ketones Not Reportable 01/15/24 18:05 Urine Blood Not Reportable 01/15/24 18:05 Urine Nitrate Not Reportable 01/15/24 18:05 Urine Bilirubin Not Reportable 01/15/24 18:05 Urine Urobilinogen Not Reportable 01/15/24 18:05 Ur Leukocyte Esterase Not Reportable 01/15/24 18:05 Urine RBC 0-4 /hpf (0-2) H 01/15/24 18:05 Urine WBC 0-4 /hpf (0-5) H 01/15/24 18:05 Ur Squamous Epith Cells None /hpf (0-5) 01/15/24 18:05 Amorphous Sediment Not Reportable 01/15/24 18:05 Urine Bacteria None /hpf (NONE) 01/15/24 18:05 Hyaline Casts 0-4 /lpf H 01/15/24 18:05 Urine Mucus 3+ /hpf 01/15/24 18:05 Discharge Plan Discharge Patient Disposition: Home Clinical Impression: Chronic erythematous candidiasis, Anxiety Condition: Stable Prescriptions: New nystatin 100,000 unit/gram cream 1 applic topical BID Qty: 15 0RF No Action Dialyvite Vitamin D3 Max 1,250 mcg (50,000 unit) tablet See Rx Instructions .ROUTE .COMPLEX Qty: 13 1RF Dose Instruction: TAKE 1 TABLET EVERY WEEK Rx Instructions: TAKE 1 TABLET EVERY WEEK (DME) insulin syringe-needle U-100 [Comfort EZ Insulin Syringe] 0.5 mL 31 gauge x 5/16 syringe See Rx Instructions .Route Qty: 100 11RF Rx Instructions: to use with insulin BID ondansetron HCl 4 mg tablet 4 mg PO DAILY 90 Days Qty: 90 1RF Rx Instructions: in the morning docusate sodium 100 mg capsule 100 mg PO BID 30 Days Qty: 60 2RF miscellaneous medical supply [facility] See Rx Instructions miscellaneous .COMPLEX Qty: 1 0RF Rx Instructions: CPAP machine and supplies as directed; albuterol sulfate [Ventolin HFA] 90 mcg/actuation HFA aerosol inhaler 2 puff INHALATION QID PRN (Reason: shortness of breath or wheezing) 90 Days Qty: 54 5RF atorvastatin 20 mg tablet 20 mg PO DAILY 90 Days Qty: 90 3RF cyclobenzaprine 10 mg tablet See Rx Instructions .ROUTE .COMPLEX Qty: 180 1RF Dose Instruction: TAKE 1 TABLET BY MOUTH TWICE DAILY NEEDED FOR MUSCLE SPASM(S) Rx Instructions: TAKE 1 TABLET BY MOUTH TWICE DAILY NEEDED FOR MUSCLE SPASM(S) furosemide 20 mg tablet 20 mg PO BID 90 Days Qty: 180 1RF insulin degludec 100 unit/mL (3 mL) insulin pen 35 unit SUBCUT BID 90 Days Qty: 63 3RF metformin 500 mg tablet 500 mg PO DAILY 90 Days Qty: 90 1RF montelukast 10 mg tablet See Rx Instructions .ROUTE .COMPLEX Qty: 90 1RF Dose Instruction: TAKE 1 TABLET BY MOUTH ONCE DAILY Rx Instructions: TAKE 1 TABLET BY MOUTH ONCE DAILY (DME) FreeStyle Lay 14 Day [place] [facility] [place] See Rx Instructions .ROUTE .MEDSUPPLY Qty: 1 0RF Rx Instructions: As directed amitriptyline 50 mg tablet See Rx Instructions .ROUTE .COMPLEX Qty: 60 5RF Dose Instruction: TAKE 2 TABLETS BY MOUTH DAILY AT BEDTIME Rx Instructions: TAKE 2 TABLETS BY MOUTH DAILY AT BEDTIME clonazepam 0.5 mg tablet 0.5 mg PO QDAY PRN (Reason: anxiety) Qty: 30 5RF duloxetine 30 mg capsule,delayed release(DR/EC) See Rx Instructions .ROUTE .COMPLEX Qty: 30 5RF Dose Instruction: TAKE 1 CAPSULE BY MOUTH DAILY Rx Instructions: TAKE 1 CAPSULE BY MOUTH DAILY duloxetine 60 mg capsule,delayed release(DR/EC) See Rx Instructions .ROUTE .COMPLEX Qty: 30 5RF Dose Instruction: TAKE 1 CAPSULE BY MOUTH DAILY Rx Instructions: TAKE 1 CAPSULE BY MOUTH DAILY Vraylar 1.5 mg capsule 1.5 mg PO DAILY Qty: 30 3RF miscellaneous medical supply [facility] [place] See Rx Instructions miscellaneous .COMPLEX Qty: 1 0RF Rx Instructions: rolling walker with seat, wide seat as directed; cvsqncqw-tveqlfcju-DR 3.5-10,000-1 mg/mL-unit/mL-% drops,suspension 4 drp otic (ear) Q8H 10 Days Qty: 10 0RF Rx Instructions: left ear fluticasone propionate 50 mcg/actuation spray,suspension 1 spray INTRANASAL BID 90 Days Qty: 54.6 3RF miscellaneous medical supply [facility] [place] See Rx Instructions miscellaneous .COMPLEX Qty: 1 0RF Rx Instructions: life alert device as directed; metoprolol succinate 100 mg tablet extended release 24 hr 100 mg PO DAILY 90 Days Qty: 90 1RF Hold Instructions: Home Medication placed on hold at Doctor's office Ozempic 0.25 mg or 0.5 mg (2 mg/3 mL) pen injector 0.25 mg SUBCUT .WEEKLY Qty: 3 2RF nystatin 100,000 unit/gram powder See Rx Instructions .ROUTE .COMPLEX Qty: 60 10RF Dose Instruction: APPLY TOPICALLY DAILY DIRECTED Rx Instructions: APPLY TOPICALLY DAILY DIRECTED alcohol swabs [Easy Touch Alcohol Prep Pads] Pads, Medicated See Rx Instructions .ROUTE .COMPLEX Qty: 100 5RF Dose Instruction: USE 1 PAD TOPICALLY THREE TIMES A DAY NEEDED TO CHECK BLOOD SUGAR Rx Instructions: USE 1 PAD TOPICALLY THREE TIMES A DAY NEEDED TO CHECK BLOOD SUGAR (DME) FreeStyle Lay 14 Day Sensor Kit See Rx Instructions .ROUTE .COMPLEX Qty: 2 10RF Dose Instruction: USE TO MONITOR BLOOD SUGAR. CHANGE SENSOR EVERY 14 DAYS. Rx Instructions: USE TO MONITOR BLOOD SUGAR. CHANGE SENSOR EVERY 14 DAYS. nystatin 100,000 unit/gram ointment See Rx Instructions .ROUTE .COMPLEX Qty: 30 2RF Dose Instruction: APPLY TOPICALLY TO AFFECTED AREAS TWICE DAILY Rx Instructions: APPLY TOPICALLY TO AFFECTED AREAS TWICE DAILY (DME) Depend Underwear For Women Lrg Misc See Rx Instructions .Route Qty: 210 11RF Rx Instructions: Incontinence pads-7 daily (DME) OneTouch Verio test strips Strip See Rx Instructions .ROUTE .COMPLEX Qty: 200 11RF Dose Instruction: Use to test blood glucose TWICE DAILY Rx Instructions: Use to test blood glucose TWICE DAILY (DME) lancets [Pure Comfort Lancets] 30 gauge misc See Rx Instructions .ROUTE .COMPLEX Qty: 200 11RF Dose Instruction: Use to test blood glucose TWICE DAILY Rx Instructions: Use to test blood glucose TWICE DAILY (DME) FreeStyle Lay 14 Day Sensor Kit See Rx Instructions .ROUTE .COMPLEX Qty: 1 10RF Dose Instruction: USE TO TEST BLOOD SUGAR 3 TIMES DAILY. CHANGE SENSOR EVERY 14 DAYS. Rx Instructions: USE TO TEST BLOOD SUGAR 3 TIMES DAILY. CHANGE SENSOR EVERY 14 DAYS. levothyroxine 137 mcg tablet 137 mcg PO DAILY 90 Days Qty: 90 0RF pregabalin [Lyrica] 150 mg capsule 150 mg PO TID 30 Days Qty: 90 1RF Awilda Low Dose Aspirin 81 mg tablet,delayed release (DR/EC) 81 mg PO DAILY Qty: 90 2RF Golytely 236-22.74-6.74 -5.86 gram recon soln 240 ml PO Q10M Qty: 4000 0RF Rx Instructions: Until have the first bowel movement Discharge Orders: Discharge ED (Routine); Ordered 01/15/24 Ordered By: Soren Pagan Referrals: Rocio Bynum MD [Primary Care Provider] - Discharge Diet: Usual diet Discharge Activity: Increase activity as tolerated Patient Instructions: Skin Yeast Infection (ED) Activity Restrictions/Additional Instructions: Nystatin cream as prescribed. Follow-up with primary care provider. Return with any new or worsening. Sign Out Sign Out Data: Patient Sign Out occurred on 01/15/24 at 17:16. Patient's care was discussed, and care was transferred from MATTHEW Palmer to MATTHEW Nielson. Coding Level of Care Code ED Accounting Methods Analyst for Chg Fwd Documented by User: MATTHEW Nielson 01/15/24 18:38 HPI - Skin/Abscess/Foreign Bdy General: Chief complaint: Wound/Laceration Stated complaint: lower abd/buttock wounds Time Seen by Provider: 01/15/24 15:46 Related Data Previous Rx's Medication Instructions Recorded cholecalciferol (vitamin D3) 1,250 See Rx Instructions .Route 02/15/21 mcg (50,000 unit) tablet .COMPLEX #13 tabs (Dialyvite Vitamin D3 Max) aspirin 81 mg tablet,delayed 81 mg PO DAILY #90 tabs 07/19/21 release (Awilda Low Dose Aspirin) nystatin 100,000 unit/gram topical See Rx Instructions .Route 12/10/21 powder .COMPLEX #60 grams miscellaneous medical supply See Rx Instructions miscellaneous 01/04/22 .COMPLEX #1 ea itfiqkgm-nwoopdymo-mcceysygt 3.5 4 drp otic (ear) Q8H 10 days #10 mL 04/19/22 mg-10,000 unit/mL-1 % ear drops,susp peg 3350-electrolytes 236 240 ml PO Q10M #4,000 mL 06/19/22 gram-22.74 gram-6.74 gram-5.86 gram solution (Golytely) insulin syringe-needle U-100 0.5 #100 ea 07/19/22 mL 31 gauge x 5/16 (Comfort EZ Insulin Syringe) ondansetron HCl 4 mg tablet 4 mg PO DAILY 90 days #90 tabs 07/19/22 miscellaneous medical supply See Rx Instructions miscellaneous 01/02/23 .COMPLEX #1 ea docusate sodium 100 mg capsule 100 mg PO BID 30 days #60 caps 01/31/23 fluticasone propionate 50 1 spray intranasal BID 90 days 05/02/23 mcg/actuation nasal #54.6 mL spray,suspension alcohol swabs (Easy Touch Alcohol See Rx Instructions .Route 06/22/23 Prep Pads) .COMPLEX #100 ea albuterol sulfate 90 mcg/actuation 2 puff inhalation QID PRN 08/01/23 aerosol inhaler (Ventolin HFA) shortness of breath or wheezing 90 days #54 grams atorvastatin 20 mg tablet 20 mg PO DAILY 90 days #90 tabs 08/01/23 cyclobenzaprine 10 mg tablet See Rx Instructions .Route 08/01/23 .COMPLEX #180 tabs flash glucose scanning reader #1 ea 08/01/23 (FreeStyle Lay 14 Day [place]) furosemide 20 mg tablet 20 mg PO BID 90 days #180 tabs 08/01/23 insulin degludec 100 unit/mL (3 35 unit (0.35 mL) SUBCUT BID 90 08/01/23 mL) subcutaneous pen days #63 mL metformin 500 mg tablet 500 mg PO DAILY 90 days #90 tabs 08/01/23 montelukast 10 mg tablet See Rx Instructions .Route 08/01/23 .COMPLEX #90 tabs flash glucose sensor (FreeStyle #2 ea 08/12/23 Lay 14 Day Sensor kit) nystatin 100,000 unit/gram topical See Rx Instructions .Route 08/21/23 ointment .COMPLEX #30 grams diaper,brief,adult,disposable #210 ea 09/06/23 (Depend Underwear For Women Large) blood sugar diagnostic (OneTouch #200 strips 09/13/23 Verio test strips) lancets 30 gauge (Pure Comfort #200 ea 10/16/23 Lancets) flash glucose sensor (FreeStyle #1 ea 10/19/23 Lay 14 Day Sensor kit) metoprolol succinate 100 mg 100 mg PO DAILY 90 days #90 tabs 10/31/23 tablet,extended release 24 hr miscellaneous medical supply See Rx Instructions miscellaneous 10/31/23 .COMPLEX #1 ea semaglutide 0.25 mg or 0.5 mg (2 0.25 mg (0.368 mL) SUBCUT .WEEKLY 10/31/23 mg/3 mL) subcutaneous pen injector #3 mL (Ozempic) levothyroxine 137 mcg tablet 137 mcg PO DAILY 90 days #90 tabs 11/06/23 pregabalin 150 mg capsule (Lyrica) 150 mg PO TID 30 days #90 caps 12/23/23 amitriptyline 50 mg tablet See Rx Instructions .Route 01/08/24 .COMPLEX #60 tabs cariprazine 1.5 mg capsule 1.5 mg PO DAILY #30 caps 01/08/24 (Vraylar) clonazepam 0.5 mg tablet 0.5 mg PO QDAY PRN anxiety #30 tabs 01/08/24 duloxetine 30 mg capsule,delayed See Rx Instructions .Route 01/08/24 release .COMPLEX #30 caps duloxetine 60 mg capsule,delayed See Rx Instructions .Route 01/08/24 release .COMPLEX #30 caps nystatin 100,000 unit/gram topical 1 applic topical BID #15 grams 01/15/24 cream Allergies Allergy/AdvReac Type Severity Reaction Status Date / Time sulfamethoxazole Allergy hives Verified 01/15/24 15:52 [From Bactrim] trimethoprim [From Bactrim] Allergy hives Verified 01/15/24 15:52 PFSH ED PFSH: Medical History Generalized anxiety disorder Psychiatric care Diabetes mellitus type 2 with complications Chronic post-traumatic stress disorder Depressive disorder due to separate medical condition Hypothyroidism Asthma Insomnia Neuropathy Allergic rhinitis Chronic idiopathic pain syndrome Vitamin D deficiency Chronic bilateral low back pain CIERRA (obstructive sleep apnea) Hyperlipidemia GERD (gastroesophageal reflux disease) Essential hypertension Hydrochlorothiazide discontinued due to hypotension Surgical History History of carpal tunnel surgery History of knee replacement H/O: hysterectomy H/O section Family History Other CAD (coronary artery disease) Diabetes Social History Smoking and tobacco/nicotine status: never used tobacco/nicotine Alcohol intake: former Substance/Drug Use: never Lives independently: Yes Household members: significant other Current occupational status: retired and disabled Course Vital Signs: Vital signs: Vital Signs Temperature 98 F 01/15/24 15:48 Pulse Rate 117 H 01/15/24 18:00 Respiratory Rate 24 H 01/15/24 18:00 Blood Pressure 144/95 01/15/24 18:00 Pulse Oximetry 96 01/15/24 18:00 Oxygen Delivery La thod Room Air 01/15/24 18:00 MDM - Skin/Abscess/Foreign Bdy Medicial Decision Making Patient seen initially by Gem Garcia, care of patient transferred to [facility] at shift change. Presented extremely anxious and tachycardic, complaining of chronic intertriginous candidal infection as she is extremely obese. Her main complaint was the pain associated with this, however due to her tachycardia labs, urinalysis, and imaging were obtained to rule out any infectious etiology. After receiving Ativan her heart rate was noted to drop down into the 80s, and she had no concerning lab work or imaging that would make me concerned for anything infectious. She states she has only been using powder, will prescribe nystatin and have her follow-up with primary care for further evaluation. She she does state that she feels better and is ready to go home at this time. Lab Data 01/15/24 16:41 01/15/24 16:41 Radiology Impressions Chest X-Ray 01/15/24 16:04 IMPRESSION: Hypoexpanded lungs with patient rotation limits evaluation. Mild bibasilar atelectasis versus scarring. Laboratory Results WBC 13.08 10^3/uL (3.29-11.43) H 01/15/24 16:41 RBC 4.65 10^6/uL (3.85-5.65) 01/15/24 16:41 Hgb 13.60 g/dL (11.27-16.99) 01/15/24 16:41 Hct 39.7 % (36-47) 01/15/24 16:41 MCV 85.4 fl (85-98) 01/15/24 16:41 MCH 29.2 pg (27-33) 01/15/24 16:41 MCHC 34.3 g/dL (30-55) 01/15/24 16:41 RDW 13.9 % (12.1-15.1) 01/15/24 16:41 Plt Count 277 10^3/cmm (157-399) 01/15/24 16:41 MPV 9.3 fL (7.4-10.4) 01/15/24 16:41 Neut % (Auto) 73.3 % 01/15/24 16:41 Lymph % (Auto) 18.3 % 01/15/24 16:41 Burt % (Auto) 6.7 % 01/15/24 16:41 Eos % (Auto) 0.8 % 01/15/24 16:41 Baso % (Auto) 0.5 % 01/15/24 16:41 Neut # (Auto) 9.60 10^3/uL (1.8-7.7) H 01/15/24 16:41 Lymph # (Auto) 2.4 10^3/uL (0.8-4.8) 01/15/24 16:41 Burt # (Auto) 0.9 10^3/uL (0.2-0.9) 01/15/24 16:41 Eos # (Auto) 0.1 10^3/uL (0.0-0.8) 01/15/24 16:41 Baso # (Auto) 0.1 10^3/uL (0.0-0.1) 01/15/24 16:41 Nucleated RBC % (auto) 0 % 01/15/24 16:41 Nucleated RBCs # 0.0 /100WBC 01/15/24 16:41 Sodium 144 mmol/L (136-145) 01/15/24 16:41 Potassium 3.7 mmol/L (3.5-5.1) 01/15/24 16:41 Chloride 108 mmol/L (98-107) H 01/15/24 16:41 Carbon Dioxide 17 mmol/L (22-29) L 01/15/24 16:41 Anion Gap 22.7 (5-19) H 01/15/24 16:41 BUN 8 mg/dL (6-20) 01/15/24 16:41 Creatinine 0.9 mg/dL (0.5-0.9) 01/15/24 16:41 GFR Calculation 64.8 mL/min (90-130) L 01/15/24 16:41 Glucose 136 mg/dL (65-115) H 01/15/24 16:41 Calculated Osmolality 298 mOsm/kg (285-295) H 01/15/24 16:41 Lactic Acid 1.9 mmol/L (0.5-2.2) 01/15/24 16:41 Calcium 9.0 mg/dL (8.5-10.5) 01/15/24 16:41 Total Bilirubin 1.6 mg/dL (0.15-1.2) H 01/15/24 16:41 AST 22 U/L (0-32) 01/15/24 16:41 ALT 16 U/L (0-33) 01/15/24 16:41 Alkaline Phosphatase 93 U/L (35-105) 01/15/24 16:41 C-Reactive Protein 71.3 mg/L (0.0-4.9) H 01/15/24 16:41 Total Protein 6.6 g/dL (6.6-8.7) 01/15/24 16:41 Albumin 3.7 g/dL (3.5-5.2) 01/15/24 16:41 Globulin 2.9 g/dL (1.3-4.6) 01/15/24 16:41 Urine Color Yellow (Yellow) 01/15/24 18:05 Urine Appearance Slightly cloudy (CLEAR) 01/15/24 18:05 Urine pH Not Reportable 01/15/24 18:05 Ur Specific [place] Not Reportable 01/15/24 18:05 Urine Protein Not Reportable 01/15/24 18:05 Urine Glucose (UA) Not Reportable 01/15/24 18:05 Urine Ketones Not Reportable 01/15/24 18:05 Urine Blood Not Reportable 01/15/24 18:05 Urine Nitrate Not Reportable 01/15/24 18:05 Urine Bilirubin Not Reportable 01/15/24 18:05 Urine Urobilinogen Not Reportable 01/15/24 18:05 Ur Leukocyte Esterase Not Reportable 01/15/24 18:05 Urine RBC 0-4 /hpf (0-2) H 01/15/24 18:05 Urine WBC 0-4 /hpf (0-5) H 01/15/24 18:05 Ur Squamous Epith Cells None /hpf (0-5) 01/15/24 18:05 Amorphous Sediment Not Reportable 01/15/24 18:05 Urine Bacteria None /hpf (NONE) 01/15/24 18:05 Hyaline Casts 0-4 /lpf H 01/15/24 18:05 Urine Mucus 3+ /hpf 01/15/24 18:05 All radiology interpretation(s) finalized by discharge Discharge Plan Discharge Patient Disposition: Home Clinical Impression: Chronic erythematous candidiasis, Anxiety Condition: Stable Prescriptions: New nystatin 100,000 unit/gram cream 1 applic topical BID Qty: 15 0RF No Action Dialyvite Vitamin D3 Max 1,250 mcg (50,000 unit) tablet See Rx Instructions .ROUTE .COMPLEX Qty: 13 1RF Dose Instruction: TAKE 1 TABLET EVERY WEEK Rx Instructions: TAKE 1 TABLET EVERY WEEK (DME) insulin syringe-needle U-100 [Comfort EZ Insulin Syringe] 0.5 mL 31 gauge x 5/16 syringe See Rx Instructions .Route Qty: 100 11RF Rx Instructions: to use with insulin BID ondansetron HCl 4 mg tablet 4 mg PO DAILY 90 Days Qty: 90 1RF Rx Instructions: in the morning docusate sodium 100 mg capsule 100 mg PO BID 30 Days Qty: 60 2RF miscellaneous medical supply [facility] [place] See Rx Instructions miscellaneous .COMPLEX Qty: 1 0RF Rx Instructions: CPAP machine and supplies as directed; albuterol sulfate [Ventolin HFA] 90 mcg/actuation HFA aerosol inhaler 2 puff INHALATION QID PRN (Reason: shortness of breath or wheezing) 90 Days Qty: 54 5RF atorvastatin 20 mg tablet 20 mg PO DAILY 90 Days Qty: 90 3RF cyclobenzaprine 10 mg tablet See Rx Instructions .ROUTE .COMPLEX Qty: 180 1RF Dose Instruction: TAKE 1 TABLET BY MOUTH TWICE DAILY NEEDED FOR MUSCLE SPASM(S) Rx Instructions: TAKE 1 TABLET BY MOUTH TWICE DAILY NEEDED FOR MUSCLE SPASM(S) furosemide 20 mg tablet 20 mg PO BID 90 Days Qty: 180 1RF insulin degludec 100 unit/mL (3 mL) insulin pen 35 unit SUBCUT BID 90 Days Qty: 63 3RF metformin 500 mg tablet 500 mg PO DAILY 90 Days Qty: 90 1RF montelukast 10 mg tablet See Rx Instructions .ROUTE .COMPLEX Qty: 90 1RF Dose Instruction: TAKE 1 TABLET BY MOUTH ONCE DAILY Rx Instructions: TAKE 1 TABLET BY MOUTH ONCE DAILY (DME) FreeStyle Lay 14 Day [place] [facility] [place] See Rx Instructions .ROUTE .MEDSUPPLY Qty: 1 0RF Rx Instructions: As directed amitriptyline 50 mg tablet See Rx Instructions .ROUTE .COMPLEX Qty: 60 5RF Dose Instruction: TAKE 2 TABLETS BY MOUTH DAILY AT BEDTIME Rx Instructions: TAKE 2 TABLETS BY MOUTH DAILY AT BEDTIME clonazepam 0.5 mg tablet 0.5 mg PO QDAY PRN (Reason: anxiety) Qty: 30 5RF duloxetine 30 mg capsule,delayed release(DR/EC) See Rx Instructions .ROUTE .COMPLEX Qty: 30 5RF Dose Instruction: TAKE 1 CAPSULE BY MOUTH DAILY Rx Instructions: TAKE 1 CAPSULE BY MOUTH DAILY duloxetine 60 mg capsule,delayed release(DR/EC) See Rx Instructions .ROUTE .COMPLEX Qty: 30 5RF Dose Instruction: TAKE 1 CAPSULE BY MOUTH DAILY Rx Instructions: TAKE 1 CAPSULE BY MOUTH DAILY Vraylar 1.5 mg capsule 1.5 mg PO DAILY Qty: 30 3RF miscellaneous medical supply [facility] [place] See Rx Instructions miscellaneous .COMPLEX Qty: 1 0RF Rx Instructions: rolling walker with seat, wide seat as directed; [id number] 3.5-10,000-1 mg/mL-unit/mL-% drops,suspension 4 drp otic (ear) Q8H 10 Days Qty: 10 0RF Rx Instructions: left ear fluticasone propionate 50 mcg/actuation spray,suspension 1 spray INTRANASAL BID 90 Days Qty: 54.6 3RF miscellaneous medical supply [facility] [place] See Rx Instructions miscellaneous .COMPLEX Qty: 1 0RF Rx Instructions: life alert device as directed; metoprolol succinate 100 mg tablet extended release 24 hr 100 mg PO DAILY 90 Days Qty: 90 1RF Hold Instructions: Home Medication placed on hold at Doctor's office Ozempic 0.25 mg or 0.5 mg (2 mg/3 mL) pen injector 0.25 mg SUBCUT .WEEKLY Qty: 3 2RF nystatin 100,000 unit/gram powder See Rx Instructions .ROUTE .COMPLEX Qty: 60 10RF Dose Instruction: APPLY TOPICALLY DAILY DIRECTED Rx Instructions: APPLY TOPICALLY DAILY DIRECTED alcohol swabs [Easy Touch Alcohol Prep Pads] Pads, Medicated See Rx Instructions .ROUTE .COMPLEX Qty: 100 5RF Dose Instruction: USE 1 PAD TOPICALLY THREE TIMES A DAY NEEDED TO CHECK BLOOD SUGAR Rx Instructions: USE 1 PAD TOPICALLY THREE TIMES A DAY NEEDED TO CHECK BLOOD SUGAR (DME) FreeStyle Lay 14 Day Sensor Kit See Rx Instructions .ROUTE .COMPLEX Qty: 2 10RF Dose Instruction: USE TO MONITOR BLOOD SUGAR. CHANGE SENSOR EVERY 14 DAYS. Rx Instructions: USE TO MONITOR BLOOD SUGAR. CHANGE SENSOR EVERY 14 DAYS. nystatin 100,000 unit/gram ointment See Rx Instructions .ROUTE .COMPLEX Qty: 30 2RF Dose Instruction: APPLY TOPICALLY TO AFFECTED AREAS TWICE DAILY Rx Instructions: APPLY TOPICALLY TO AFFECTED AREAS TWICE DAILY (DME) Depend Underwear [facility] See Rx Instructions .Route Qty: 210 11RF Rx Instructions: Incontinence pads-7 daily (DME) OneTouch Verio test strips Strip See Rx Instructions .ROUTE .COMPLEX Qty: 200 11RF Dose Instruction: Use to test blood glucose TWICE DAILY Rx Instructions: Use to test blood glucose TWICE DAILY (DME) lancets [Pure Comfort Lancets] 30 gauge misc See Rx Instructions .ROUTE .COMPLEX Qty: 200 11RF Dose Instruction: Use to test blood glucose TWICE DAILY Rx Instructions: Use to test blood glucose TWICE DAILY (DME) FreeStyle Lay 14 Day Sensor Kit See Rx Instructions .ROUTE .COMPLEX Qty: 1 10RF Dose Instruction: USE TO TEST BLOOD SUGAR 3 TIMES DAILY. CHANGE SENSOR EVERY 14 DAYS. Rx Instructions: USE TO TEST BLOOD SUGAR 3 TIMES DAILY. CHANGE SENSOR EVERY 14 DAYS. levothyroxine 137 mcg tablet 137 mcg PO DAILY 90 Days Qty: 90 0RF pregabalin [Lyrica] 150 mg capsule 150 mg PO TID 30 Days Qty: 90 1RF Awilda Low Dose Aspirin 81 mg tablet,delayed release (DR/EC) 81 mg PO DAILY Qty: 90 2RF Golytely [id number] -5.86 gram recon soln 240 ml PO Q10M Qty: 4000 0RF Rx Instructions: Until have the first bowel movement Discharge Orders: Discharge ED (Routine); Ordered 01/15/24 Ordered By: Soren Pagan Referrals: Rocio Bynum MD [Primary Care Provider] - Discharge Diet: Usual diet Discharge Activity: Increase activity as tolerated Patient Instructions: Skin Yeast Infection (ED) Activity Restrictions/Additional Instructions: Nystatin cream as prescribed. Follow-up with primary care provider. Return with any new or worsening. Sign Out Sign Out Data: Patient Sign Out occurred on 01/15/24 at 17:16. Patient's care was discussed, and care was transferred from MATTHEW Palmer to MATTHEW Nielson. Coding Level of Care Code ED Accounting Methods Analyst for Paul Rubio
--- NOTE | 2024-01-15 16:15 | ECG_ITS ---
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 Measurements Intervals [place] Rate: 124 P: 20 CA: 169 QRS: -12 QRSD: 66 T: 47 QT: 407 QTc: 586 Interpretive Statements SINUS TACHYCARDIA LOW QRS VOLTAGE IN PRECORDIAL LEADS [QRS DEFLECTION < 1.0 mV IN CHEST LEADS] POSSIBLE ANTERIOR MYOCARDIAL INFARCTION , OF INDETERMINATE AGE [30 ms Q WAVE IN V3/V4, OR R < 0.2 mV IN V4] Compared to ECG 07/18/2021 12:36:40 Sinus rhythm no longer present Myocardial infarct finding still present Electronically Signed On 01-15-2024 18:09:01 CDT by Chris Ibanez M.D. [id number]
[2024-01-15] MEDS: sodium chloride 0.9% 1,000 ML 999 ML IV (16:30)
[2024-01-15 16:51] VITALS: PULSE 117; RESP 22; O2SAT 100
[2024-01-15 16:53] LABS: Basophils # 0.1 10^3/uL (0.0-0.1); Basophils % 0.5 %; Eosinophils # 0.1 10^3/uL (0.0-0.8); Eosinophils % 0.8 %; Hematocrit 39.7 % (36-47); Lymphocytes # 2.4 10^3/uL (0.8-4.8); Lymphocytes % 18.3 %; Mean Corpuscular HGB Conc 34.3 g/dL (30-55); Mean Corpuscular Hemoglobin 29.2 pg (27-33); Mean Corpuscular Volume 85.4 fl (85-98); Mean Platelet Volume 9.3 fL (7.4-10.4); Monocytes # 0.9 10^3/uL (0.2-0.9); Monocytes % 6.7 %; Neutrophils % 73.3 %; Nucleated Red Blood Cells % 0 %; Platelet Count 277 10^3/cmm (157-399); Red Blood Count 4.65 10^6/uL (3.85-5.65); Red Cell Distribution Width 13.9 % (12.1-15.1); White Blood Count 13.08 10^3/uL (3.29-11.43)
[2024-01-15 16:56] VITALS: BP 123/48; PULSE 113; RESP 26; O2SAT 100
[2024-01-15 17:00] VITALS: BP 127/77; PULSE 80; RESP 20; O2SAT 98
[2024-01-15] MEDS: LORazepam 2 mg/mL INJ 1 mL 1 MG IVP (17:03)
[2024-01-15 17:12] LABS: Lactic Sepsis W/Reflex 1.9 mmol/L (0.5-2.2)
[2024-01-15 17:13] LABS: Alanine Aminotransferase 16 U/L (0-33); Albumin Level 3.7 g/dL (3.5-5.2); Alkaline Phosphatase 93 U/L (35-105); Anion Gap 22.7 (5-19); Aspartate Amino Transferase 22 U/L (0-32); Blood Urea Nitrogen 8 mg/dL (6-20); C Reactive Protein 71.3 mg/L (0.0-4.9); Carbon Dioxide 17 mmol/L (22-29); Chloride 108 mmol/L (98-107); Globulin 2.9 g/dL (1.3-4.6); Glomerular Filtration Rate 64.8 mL/min (90-130); Glucose 136 mg/dL (65-115); Osmolality Calculated 298 mOsm/kg (285-295); Potassium 3.7 mmol/L (3.5-5.1); Sodium 144 mmol/L (136-145); Total Bilirubin 1.6 mg/dL (0.15-1.2); Total Protein 6.6 g/dL (6.6-8.7)
[2024-01-15 18:00] VITALS: BP 144/95; PULSE 117; RESP 24; O2SAT 96
[2024-01-15 18:13] LABS: Charge for UA Resulting for Rev
[2024-01-15 18:19] LABS: Urine Color Yellow (Yellow)
[2024-01-15 18:20] LABS: UA Manual Slide Review YES; Urine Appearance Slightly Cloudy (CLEAR)
[2024-01-15 18:21] LABS: Add Urine Culture? No; Hyaline Casts Urine 0-4 /lpf; Mucus Urine 3+ /hpf; RBC Urine 0-4 /hpf (0-2); WBC Urine 0-4 /hpf (0-5)
[2024-01-15 18:45] VITALS: PULSE 112; RESP 22; O2SAT 94
== END 2024-01-15 18:46 | disposition home or self-care (01) ==
PROVIDERS: Physician Assistant; Emergency Provider Physician Assistant; PCP Family Medicine
DX: B37.2 Candidiasis of skin and nail (principal); F41.9 Anxiety disorder, unspecified; Z79.82 Long term (current) use of aspirin; Z79.4 Long term (current) use of insulin; Z79.84 Long term (current) use of oral hypoglycemic drugs; Z79.85 Long-term (current) use of injectable non-insulin antidiabetic drugs; E11.40 Type 2 diabetes mellitus with diabetic neuropathy, unspecified; E78.5 Hyperlipidemia, unspecified; I10 Essential (primary) hypertension
CPT/HCPCS: 36415; 71045; 80053; 81003; 81015; 83605; 85025; 86140; 87040; 93005; 96374; 99285; J2060; J7030

== ENCOUNTER → 2024-01-24 11:08 | Outpatient (BNVA) | payer MEDICARE, MEDICAID, SELFPAY | PROVIDERS: PCP Family Medicine; Visit Provider Family Medicine | DX: E11.8 Type 2 diabetes mellitus with unspecified complications (principal); E03.9 Hypothyroidism, unspecified; E78.2 Mixed hyperlipidemia | CPT/HCPCS: 80061; 83036; 84439; 84443; 84481 ==

== ENCOUNTER → 2024-05-13 14:10 | Outpatient (BNVA) | payer MEDICARE, MEDICAID, SELFPAY | PROVIDERS: PCP Family Medicine; Visit Provider Family Medicine | DX: E03.9 Hypothyroidism, unspecified | CPT/HCPCS: 84439; 84443; 84481 ==

== ENCOUNTER → 2024-09-03 10:55 | Outpatient (BNVA) | payer MEDICARE, OTHER, SELFPAY | PROVIDERS: PCP Family Medicine; Visit Provider Family Medicine | DX: E03.9 Hypothyroidism, unspecified (principal); E11.8 Type 2 diabetes mellitus with unspecified complications; I10 Essential (primary) hypertension | CPT/HCPCS: 80048; 83036; 84439; 84443; 84481 ==

== ENCOUNTER 2024-11-14 13:58 | Outpatient (CLI) | payer MEDICARE, MEDICAID, SELFPAY ==
--- NOTE | 2024-11-14 14:00 | MM_ITS ---
WS: [id number] BILATERAL SCREENING DIGITAL TOMOSYNTHESIS MAMMOGRAM WITH CAD HISTORY: Z12.39 - Encounter for other screening for malignant neop... COMPARISON: 12/25/2019 Bilateral CC and MLO views with tomosynthesis and synthetic mammography submitted. Computer aided detection analyzed. Breast composition: There are scattered areas of fibroglandular density. No suspicious masses, microcalcifications or architectural distortion. Benign calcifications in each breast. MM/MM scr tomosynthesis [id number] IMPRESSION: BI-RADS: 2 - Benign. FOLLOW UP: 1 Year Follow-up
== END 2024-11-14 13:59 | disposition home or self-care (01) ==
PROVIDERS: PCP Family Medicine; Visit Provider Family Medicine
DX: Z12.39 Encounter for other screening for malignant neoplasm of breast (principal); R92.323 Mammographic fibroglandular density, bilateral breasts; R92.1 Mammographic calcification found on diagnostic imaging of breast
CPT/HCPCS: 77063; 77067

== ENCOUNTER → 2025-01-01 13:30 | Outpatient (BNVA) | payer MEDICARE, MEDICAID, SELFPAY | PROVIDERS: PCP Family Medicine; Visit Provider Family Medicine | DX: E03.9 Hypothyroidism, unspecified (principal); I10 Essential (primary) hypertension; E78.2 Mixed hyperlipidemia; E11.8 Type 2 diabetes mellitus with unspecified complications | CPT/HCPCS: 80053; 80061; 83036; 84443 ==

== ENCOUNTER → 2025-04-29 14:58 | Outpatient (BNVA) | payer MEDICARE, MEDICAID, SELFPAY | PROVIDERS: PCP Family Medicine; Visit Provider Family Medicine | DX: N18.2 Chronic kidney disease, stage 2 (mild) (principal); E11.22 Type 2 diabetes mellitus with diabetic chronic kidney disease; I12.9 Hypertensive chronic kidney disease with stage 1 through stage 4 chronic kidney disease, or unspecified chronic kidney disease; E03.9 Hypothyroidism, unspecified; E11.8 Type 2 diabetes mellitus with unspecified complications | CPT/HCPCS: 80048; 83036; 84439; 84443; 84481 ==